=== PATIENT | female | born 1950 | race Caucasian/White ===

== ENCOUNTER 2016-06-15 18:18 | Inpatient (IN) | payer MEDICARE ==
[2016-06-15] MEDS ORDERED: METHYLPREDNISOLONE SOD SUCC/PF 40 MG/ML VIAL IV ONE (18:42)
--- NOTE | 2016-06-15 19:07 | ERNOTE ---
<Zeus Escobedo - Last Filed: 06/15/16 20:00> Dyspnea - Date Date of Service: 06/15/16 - General Presenting Symptoms: shortness of breath Time Seen by Provider: 06/15/16 18:33 Source: patient, family, EMS Exam Limitations: clinical condition - Immun/Allergies/Home Medications Immunizations: IMMUNIZATION HX Immunizations Up to Date No Allergies/Adverse Reactions: Allergies codeine Allergy (Verified 06/18/16 01:52) Home Medications: HOME MEDICATIONS Aclidinium [place] [Tudorza Pressair] 1 puff IH BID 06/16/16 [Last Taken Unknown ] Albuterol Sulfate 2.5 mg IH Q1H PRN 06/16/16 [Last Taken Unknown] Albuterol Sulfate [Ventolin HFA] 1 puff IH Q6H PRN 06/16/16 [Last Taken Unknown] Calcium Carbonate/Vitamin D3 [Calcium 600-Vit D3 400 Tablet] 1 each PO DAILY 05/21 [Last Taken Unknown] Escitalopram Oxalate [Lexapro] 10 mg PO DAILY 06/16/16 [Last Taken Unknown] Folic Acid 1 mg PO DAILY 06/16/16 [Last Taken Unknown] Gabapentin 100 mg PO BID 06/16/16 [Last Taken Unknown] Gabapentin 400 mg PO HS 06/16/16 [Last Taken Unknown] LORazepam [Ativan] 1 mg PO Q4H PRN 06/16/16 [Last Taken Unknown] Mometasone/Formoterol [Dulera 200 Mcg/5 Mcg Inhaler] 2 puff IH BID 06/16/16 [ Last Taken Unknown] Multivitamin [One Daily Essential] 1 each PO DAILY 06/16/16 [Last Taken Unknown] Omeprazole [Prilosec] 40 mg PO DAILY 06/16/16 [Last Taken Unknown] Polyvinyl Alcohol [Artificial Tears] 1 drop OP QID PRN 06/16/16 [Last Taken Unknown] Salsalate 500 mg PO QID PRN 06/16/16 [Last Taken Unknown] Sodium Chloride [Saline Nasal Mist] 4 spray NS Q4H PRN 06/16/16 [Last Taken Unknown] Topiramate [Topamax] 100 mg PO BID 06/16/16 [Last Taken Unknown] busPIRone HCL [Buspar] 10 mg PO BID 06/16/16 [Last Taken Unknown] Cefuroxime Axetil [Ceftin] 500 mg PO BID #30 tab 06/21/16 [Last Taken Unknown] Nicotine [Nicoderm] 21 mg TD Q24H #30 patch.td24 06/21/16 [Last Taken Unknown] predniSONE [Prednisone] 3 tab PO BID #60 tab 06/21/16 [Last Taken Unknown] - History of Present Illness Narrative: Pt is a known smoker with a long history, upwards to 50 years of smoking, but 3 days ago the patient started getting sick. She has had a progressively worse cough and is getting weaker over the past 3 days. Pt's O2 sats were in the upper 70's and the patient was near fatigue upon the arrival of EMS. Severity: severe Treatment [employer]: by patient, paramedics Initiating event: Reports: upper resp illness, exposure to smoke Frequency of episodes: Reports: occassional episodes Modifying Factors - (Improves): Reports: oxygen Associated Symptoms-Dyspnea: Reports: cough Review of Systems - Review of Systems Constitutional: Present: See HPI, fatigue EYE: Present: no symptoms reported ENT: Present: no symptoms reported Respiratory: Present: shortness of breath, cough, wheezing, other - tachypneic Cardiology: Present: palpitations, other - tachycardia Gastrointestinal/Abdominal: Present: no symptoms reported Genitourinary: Present: no symptoms reported Musculoskeletal: Present: no symptoms reported Skin: Present: no symptoms reported Neurological: Present: no symptoms reported Endocrine: Present: no symptoms reported Hematologic/Lymphatic: Present: no symptoms reported Psych: Present: no symptoms reported - Patient's Past Medical History Patient History - Medical: Anxiety, Depression, GERD Patient History - Cardiac/Respiratory: COPD, Other - respiratory failure - Social History Living Situations: home Smoking Status: Current every day smoker Have you smoked in the past 12 months: Yes Physical Exam - Physical Exam General Appearance: Present: wd/wn, alert, severe distress Eye Exam: Normal inspection: bilateral, PERRL: bilateral Ears, Nose, Throat: Present: hearing grossly normal, nasal congestion, normal pharynx Neck: Present: normal inspection, nontender Respiratory: Present: chest nontender, respiratory distress, accessory muscle use, crackles, wheezing Cardiovascular/Chest: Present: no murmur, normal peripheral pulses, tachycardia Gastrointestinal/Abdominal: Present: normal bowel sounds, nontender, nondistended, soft, no organomegaly Rectal Exam: Present: deferred Back Exam: Present: normal inspection, normal range of motion Extremity Exam: Present: normal inspection, non-tender, no edema, normal range of motion Neurological Exam: Present: alert, oriented, normal mood/affect Skin Exam: Present: normal color, diaphoresis Lymphatic Exam: Present: no adenopathy ED Progress - Results and Orders Patient's Lab Results:: I have reviewed the patient's lab results. - Vital Signs Patient's Vital Signs:: I have reviewed the patient's vital signs. Vital Signs: Vital Signs 06/15/16 06/15/16 18:21 18:33 Temperature 35.6 C L Pulse Rate 105 H 100 Respiratory 36 H Rate Blood Pressure 164/84 O2 Sat by Pulse 99 Oximetry - X-Ray X-Ray #1 X-Ray: chest Interpretation: Reviewed by me - Progress/Reassessment Chief Complaint: Dyspnea Progress:: Unchanged - Transfer of Care Physician Sign Out: Zeus Escobedo Receiving Physician: Chicho Ward Expected Disposition: Admit Additional Notes: Pt has improved on the Bi-Pap and the family does not want her to be intubated. She has been intubated in the past and it took 10 days to get her off the vent. Patient's family will talk and sign a DNI form. Departure Clinical Impression: COPD exacerbation - Departure Condition: Good - Critical Care Total Time (mins): 45 Critical Care: Considerable thought was given to intubating the patient but the family firmly requested no intubation because of previous difficulties. <Chicho Ward - Last Filed: 06/22/16 20:10> Dyspnea - Immun/Allergies/Home Medications Immunizations: IMMUNIZATION HX Immunizations Up to Date No - Family History Maternal Grandmother Family History - Cardiac/Respiratory: Hypertension ED Progress - Vital Signs Vital Signs: Vital Signs 06/15/16 06/15/16 06/15/16 18:21 18:24 18:33 Temperature 35.6 C L Pulse Rate 105 H 121 H 100 Respiratory 36 H 26 H Rate Blood Pressure 164/84 164/84 O2 Sat by Pulse 99 95 Oximetry 06/15/16 06/15/16 06/15/16 18:38 18:53 19:23 Temperature Pulse Rate 98 93 91 Respiratory 25 H 24 H 24 H Rate Blood Pressure 124/77 133/69 111/55 O2 Sat by Pulse 94 92 95 Oximetry 06/15/16 06/15/16 19:53 20:08 Temperature Pulse Rate 91 90 Respiratory 20 20 Rate Blood Pressure 108/60 96/57 O2 Sat by Pulse 93 95 Oximetry - Transfer of Care Additional Notes: DNI form was signed and pt remained stable in the ED on bipap. settings were modified to help reduce CO2 prior to admit to acute care. Pt admitted in stable condition
[2016-06-15 19:16] LABS: Albumin * 2.8 gm/dl (3.4-5.0); Anion Gap 15.6 mmol/L (6.8-13.8); BUN/Creatinine Ratio 16.2 (9.0-21.6); Bilirubin, Total 0.4 mg/dL (0.0-1.1); Ca. Corrected For Albumin 10.9 mg/dL (8.4-10.2); Calcium * 10.3 mg/dL (7.9-10.9); Carbon Dioxide 23.1 mmol/L (24-32.6); Magnesium 2.1 mg/dL (1.2-2.8); Potassium 3.7 mmol/L (3.4-4.6); Total Protein 7.4 gm/dL (6.2-8.2)
[2016-06-15 19:17] LABS: Hemoglobin 13.6 gm/dL (12.5-16.0); Mean Cell Volume 98.2 fl (78-100); Mean Corpuscular Hemoglobin 31.1 pg (27-31); Mean Corpuscular Hgb Conc 31.6 g/dl (32-36); Neutrophil # 13.4 K/mm3 (1.3-6.0); Neutrophil % 87.2 % (42-75.0); Platelet Count 213 K/mm3 (150-450); Red Blood Count 4.38 M/mm3 (4.2-5.4); Red Cell Distribution Width 13.8 % (11.5-14.0); White Blood Count 15.4 K/mm3 (4.0-10.5)
[2016-06-15] MEDS ORDERED: AZITHROMYCIN 250 MG TABLET PO ONE (20:48)
--- NOTE | 2016-06-15 21:56 | HP ---
<Rachel Hunt - Last Filed: 06/16/16 07:11> Chief Complaint - Chief Complaint Date of Service: 06/15/16 Time of Service: 20:45 Chief Complaint: "Difficulty breathing, not feeling well for 3 days.". Source of HPI- Pt; unreliable due to AMS, Pt's son-alyce Gilbert daughter Suzie, ER provider report, Pt's EHR. History of Present Illness: Ms Jean-Baptiste is a 66-year-old WF patient of Dr. Navdeep Khan with a PMH of: Acute Respiratory Distress, Anemia- Iron deficiency, CHF, COPD, and Osteoarthritis. History is obtained from pt's Son in-law Angélica & Step daughter Suzie as the pt is in a lethargic level of consciousness. Suzie states that for the last 3 days, pt has not been feeling well. She has been having worsening cough, SOB and lack of appetite. Today was worst condition that she has ever been. The SOB got so severe that they had to call the emergency squad. Suzie says that by the time the EMS arrived, she was gasping for air. The pt's POX level was found to be in the 70% by the EMS and, by the time she arrived to the [facility] ER, she was nearly unconscious. ER provider was going to Intubate patient due to signs of Acute Respiratory Distress, but the pt's daughter Clara,(who is also POA) declined. Clara told the ERP that pt had a prior hospitalization about 1 yr ago at a hospital in [place] for acute respiratory failure which led to intubation. The weaning off from the ventilator was a complicate one. For that reason, they were advised that if she ever needed to be intubated again, she may be ventilator dependent for the remainder of her life, which the pt expressed no desire for that treatment. According to the [facility] records, it appears that patient was discharged to hospice in May 2015 following that hospitalization. However, on June of 2015, pt revoked her hospice services as she changed her mind about comfort cares. She also changed her code status from DNR to full. She did that in the hopes that the doctors were wrong, and that she would not have any respiratory failure issues. She was then transferred to the [facility] where she resided until November 2015 and was discharged home thereafter. At the time of physical examaintion today, pt remains largely lerthagic. She is able to answer questions with one answer, but drifts back into sleep. During evaluation at the ER, the ABGs showed Respiratory acidosis with metabolic acidosis. Pt will need to be admitted inpatient due to Hypercapneic Hypoxic Respiratory failure, which we will attempt to correct with non invasive BIPAP as the pt's code status is DNR/DNI. - Patient's Past Medical History Patient History - Medical: Anemia - Iron Deficiency , Anxiety, Depression, GERD , Osteoarthritis, Other - Blindness Left Eye. Patient History - Cardiac/Respiratory: CHF, COPD, Other - respiratory failure Patient History - Surgical Procedures: Other - ORIF, Tonsilectomy, D & C - Family History Maternal Grandmother Family History - Cardiac/Respiratory: Hypertension - Social History Living Situations: home Smoking Status: Current every day smoker Have you smoked in the past 12 months: Yes Review Of Systems (GEN) - Review of Systems Additional Comments: ROS unobtainable due to pt's Altered level of Consciousness Immunizations: IMMUNIZATION HX Immunizations Up to Date No Allergies/Adverse Reactions: Allergies Allergy/AdvReac Type Severity Reaction Status Date / Time codeine Allergy Unverified 11/25/15 11:33 Home Medications: HOME MEDICATIONS Aclidinium [place] [Tudorza Pressair] 1 puff IH BID 06/16/16 [Last Taken Unknown ] Albuterol Sulfate 2.5 mg IH Q1H PRN 06/16/16 [Last Taken Unknown] Albuterol Sulfate [Ventolin HFA] 1 puff IH Q6H PRN 06/16/16 [Last Taken Unknown] Calcium Carbonate/Vitamin D3 [Calcium 600 + Vit D 400 Tablet] 1 each PO DAILY [Last Taken Unknown] Diphenhydramine HCl [Diphenhist] 25 mg PO QID 06/16/16 [Last Taken Unknown] Escitalopram Oxalate [Lexapro] 10 mg PO DAILY 06/16/16 [Last Taken Unknown] Folic Acid 1 mg PO DAILY 06/16/16 [Last Taken Unknown] Gabapentin 100 mg PO BID 06/16/16 [Last Taken Unknown] Gabapentin 400 mg PO HS 06/16/16 [Last Taken Unknown] Guaifenesin [Mucinex] 600 mg PO BID 06/16/16 [Last Taken Unknown] LORazepam [Ativan] 1 mg PO Q4H PRN 06/16/16 [Last Taken Unknown] Mometasone/Formoterol [Dulera 200 Mcg/5 Mcg Inhaler] 2 puff IH BID 06/16/16 [ Last Taken Unknown] Multivitamin [One Daily Essential] 1 each PO DAILY 06/16/16 [Last Taken Unknown] Omeprazole [Prilosec] 40 mg PO DAILY 06/16/16 [Last Taken Unknown] Polyvinyl Alcohol [Artificial Tears] 1 drop OP QID PRN 06/16/16 [Last Taken Unknown] Salsalate 500 mg PO QID PRN 06/16/16 [Last Taken Unknown] Sodium Chloride [Saline Nasal Mist] 4 spray NS Q4H PRN 06/16/16 [Last Taken Unknown] Topiramate [Topamax] 100 mg PO BID 06/16/16 [Last Taken Unknown] busPIRone HCL [Buspar] 10 mg PO BID 06/16/16 [Last Taken Unknown] Exam - Exam Vital Signs: Vital Signs - Last Taken Temp 35.6 C L 06/15/16 18:21 Pulse 90 06/15/16 20:08 Resp 20 06/15/16 20:08 BP 96/57 06/15/16 20:08 Pulse Ox 95 06/15/16 20:08 Constitutional: Present: Mild distress, Lethargic ENT Exam: Present: normal ENT inspection, hearing grossly normal, dry mucous membranes. Absent: nasal congestion, nasal drainage Eye Exam: bilateral eye: normal inspection, PERRL Neck: Present: non-tender, full range of motion, supple, trachea midline Back Exam: Present: normal inspection Breasts: Present: Exam deferred Respiratory: Present: chest non-tender, crackles, wheezing, expiration ( prolonged) Cardiovascular/Chest: Present: regular rate, rhythm, no murmur Abdomen: Present: Normal bowel sounds, soft, nontender /Rectal: Present: Exam deferred Extremity: Present: normal range of motion, non-tender, normal inspection Skin Exam: Present: warm/dry, no cyanosis Lymphatic: Present: no adenopathy Neurologic: Present: no motor/sensory deficits - Lethargic., other Appearance: Present: appropriate appearance Eye contact: Present: cooperative Thoughts: Present: no apparent hallucination Diagnostic Studies: Abnormal Lab Results 06/15/16 06/15/16 06/15/16 Range/Units 18:57 18:58 18:58 WBC 15.4 H (4.0-10.5) K/mm3 MCH 31.1 H (27-31) pg MCHC 31.6 L (32-36) g/dl Immature Gran % (Auto) 0.70 H (0.001-0.429) % Immature Gran # (Auto) 0.11 H (0.000-0.0310) K/mm3 Neutrophils % 87.2 H (42-75.0) % Lymphocytes % 6.4 L (20-51) % Neutrophils # 13.4 H (1.3-6.0) K/mm3 Lymphocytes # 1.0 L (1.5-3.5) k/mm3 pCO2 67.2 H (32.0-45.0) mmHg pO2 (83.0-108.0) mmHg HCO3 18.6 L (21.0-28.0) mmol/L Total CO2 (19.0-24.0) mmol/L Base Excess -12.5 L (-2.0-3.0) mmol/L ABG pH 7.06 L* (7.35-7.45) ABG O2 Sat (Measured) 93.6 L (94.0-98.0) % Carbon Dioxide 23.1 L (24-32.6) mmol/L Anion Gap 15.6 H (6.8-13.8) mmol/L Random Glucose 123 H (70-110) mg/dL Calcium Adj for Albumin 10.9 H (8.4-10.2) mg/dL ALT 15 L (19-67) U/L Albumin 2.8 L (3.4-5.0) gm/dl Mycoplasma pneumon IgM (NonReactive) 06/15/16 06/15/16 06/15/16 Range/Units 18:58 20:22 21:30 WBC (4.0-10.5) K/mm3 MCH (27-31) pg MCHC (32-36) g/dl Immature Gran % (Auto) (0.001-0.429) % Immature Gran # (Auto) (0.000-0.0310) K/mm3 Neutrophils % (42-75.0) % Lymphocytes % (20-51) % Neutrophils # (1.3-6.0) K/mm3 Lymphocytes # (1.5-3.5) k/mm3 pCO2 71.3 H* 71.7 H* (32.0-45.0) mmHg pO2 67.1 L 82.4 L (83.0-108.0) mmHg HCO3 (21.0-28.0) mmol/L Total CO2 24.3 H (19.0-24.0) mmol/L Base Excess -8.5 L -9.0 L (-2.0-3.0) mmol/L ABG pH 7.11 L* 7.10 L* (7.35-7.45) ABG O2 Sat (Measured) 85.4 L 91.4 L (94.0-98.0) % Carbon Dioxide (24-32.6) mmol/L Anion Gap (6.8-13.8) mmol/L Random Glucose (70-110) mg/dL Calcium Adj for Albumin (8.4-10.2) mg/dL ALT (19-67) U/L Albumin (3.4-5.0) gm/dl Mycoplasma pneumon IgM Reactive H (NonReactive) Laboratory Results WBC 15.4 K/mm3 (4.0-10.5) H 06/15/16 18:58 RBC 4.38 M/mm3 (4.2-5.4) 06/15/16 18:58 Hgb 13.6 gm/dL (12.5-16.0) 06/15/16 18:58 Hct 43.0 % (37.0-47.0) 06/15/16 18:58 MCV 98.2 fl (78-100) 06/15/16 18:58 MCH 31.1 pg (27-31) H 06/15/16 18:58 MCHC 31.6 g/dl (32-36) L 06/15/16 18:58 RDW 13.8 % (11.5-14.0) 06/15/16 18:58 Plt Count 213 K/mm3 (150-450) 06/15/16 18:58 MPV 9.0 fl (6.0-9.5) 06/15/16 18:58 Immature Gran % (Auto) 0.70 % (0.001-0.429) H 06/15/16 18:58 Immature Gran # (Auto) 0.11 K/mm3 (0.000-0.0310) H 06/15/16 18:58 Neutrophils % 87.2 % (42-75.0) H 06/15/16 18:58 Lymphocytes % 6.4 % (20-51) L 06/15/16 18:58 Monocytes % 5.3 % (0.0-9) 06/15/16 18:58 Eosinophils % 0.0 % (0.0-3.0) 06/15/16 18:58 Basophils % 0.4 % (0.0-1.0) 06/15/16 18:58 Nucleated RBC % 0.0 k/mm3 (0-1) 06/15/16 18:58 Neutrophils # 13.4 K/mm3 (1.3-6.0) H 06/15/16 18:58 Lymphocytes # 1.0 k/mm3 (1.5-3.5) L 06/15/16 18:58 Monocytes # 0.8 k/mm3 (0.0-1.0) 06/15/16 18:58 Eosinophils # 0.0 k/mm3 (0.0-0.7) 06/15/16 18:58 Absolute Basophils 0.1 k/mm3 (0.0-0.1) 06/15/16 18:58 pCO2 71.7 mmHg (32.0-45.0) H* 06/15/16 21:30 pO2 82.4 mmHg (83.0-108.0) L 06/15/16 21:30 HCO3 21.8 mmol/L (21.0-28.0) 06/15/16 21:30 Total CO2 24.0 mmol/L (19.0-24.0) 06/15/16 21:30 Base Excess -9.0 mmol/L (-2.0-3.0) L 06/15/16 21:30 ABG pH 7.10 (7.35-7.45) L* 06/15/16 21:30 ABG O2 Sat (Measured) 91.4 % (94.0-98.0) L 06/15/16 21:30 Sodium 140 mmol/L (132-142) 06/15/16 18:58 Plasma Sodium 140 mmol/L (130-142) 06/15/16 18:58 Potassium 3.7 mmol/L (3.4-4.6) 06/15/16 18:58 Chloride 105 mmol/L (97-106) 06/15/16 18:58 Carbon Dioxide 23.1 mmol/L (24-32.6) L 06/15/16 18:58 Anion Gap 15.6 mmol/L (6.8-13.8) H 06/15/16 18:58 BUN 16 mg/dL (3-23) 06/15/16 18:58 Creatinine 0.99 mg/dL (0.4-1.4) 06/15/16 18:58 Est GFR (Non-Af Amer) 60 mL/min (60-130) D 06/15/16 18:58 BUN/Creatinine Ratio 16.2 (9.0-21.6) 06/15/16 18:58 Random Glucose 123 mg/dL (70-110) H 06/15/16 18:58 Calcium 10.3 mg/dL (7.9-10.9) 06/15/16 18:58 Calcium Adj for Albumin 10.9 mg/dL (8.4-10.2) H 06/15/16 18:58 Magnesium 2.1 mg/dL (1.2-2.8) 06/15/16 18:58 Total Bilirubin 0.4 mg/dL (0.0-1.1) 06/15/16 18:58 AST 7 U/L (0-48) 06/15/16 18:58 ALT 15 U/L (19-67) L 06/15/16 18:58 Alkaline Phosphatase 143 U/L (50-170) 06/15/16 18:58 Total Protein 7.4 gm/dL (6.2-8.2) 06/15/16 18:58 Albumin 2.8 gm/dl (3.4-5.0) L 06/15/16 18:58 Influenza Type A Ag Negative (NEGATIVE) 06/15/16 18:54 Influenza Type B Ag Negative (NEGATIVE) 06/15/16 18:54 Mycoplasma pneumon IgM Reactive (NonReactive) H 06/15/16 18:58 Assessment/Plan - Assessment/Plan (1) Acute hypercapnic respiratory failure Assessment: Ms Jean-Baptiste is a 66-yr-old WF with a known history of COPD, who has had prior hospitalization for Acute respiratory failure which required intubation. She came up with URI symptoms of coughing and SOB 3 days ago and got worse today. She was brought to the [facility] ER by the EMS who found her with POX level of 70% and by the time she arrived to the ED she was nearly unresponsive. ERP was going to intubate pt, but it appears that pt has declined these efforts in the past and so did her daughter Clara, who was present at the time, and confirmed this wish. At the time of physical examination, her POX level are 92- 94% on BIPAP with 35% OF fio2. I had a lengthy discussion with pt's son in-law and step daughter about the critical levels of the ABGs and the fact that trying to correct her respiratory/metabolic derangements may be difficult with noninvasive ventilation/BIPAP and that could potentially lead to . I also discussed that results could improve with intubation, but might also not guarantee being off the invasive ventilator. I explained that we could give an attempt with non-invasive BIPAP but if she failed to improve, transition to comfort cares may be initiated. I did inform them that we could try antibiotics and IV steroids as an attempt to see if any underlying respiratory illness such as pneumonia and acute exacerbation of COPD resolves while on the noninvasive mechanical ventilation. They all verbalized the understanding of plan of treatment and were thankful for the medical care the pt was receiving. I will let the attending decide how much time she can be left on the BIPAP as at this time, the equipment is being used to prevent intubation and to see if there will be any improvement without invasive ventilation. Problem: Acute (2) Acute exacerbation of chronic obstructive pulmonary disease (COPD) Problem: Acute (3) Pneumonia Problem: Acute (4) CHF (congestive heart failure) Problem: Chronic (5) Anemia Problem: Chronic QualifierTitle: Anemia type: iron deficiency <Navdeep Khan - Last Filed: 06/16/16 14:42> Exam - Exam Vital Signs: Vital Signs - Last Taken Temp 36.6 C 06/16/16 13:24 Pulse 98 06/16/16 13:24 Resp 26 H 06/16/16 13:24 BP 120/72 06/16/16 13:24 Pulse Ox 99 06/16/16 13:24 Diagnostic Studies: Abnormal Lab Results 06/16/16 06/16/16 06/16/16 Range/Units 00:55 03:35 05:25 WBC 11.9 H D (4.0-10.5) K/mm3 MCHC 31.1 L (32-36) g/dl RDW 14.1 H (11.5-14.0) % Immature Gran % (Auto) 0.70 H (0.001-0.429) % Immature Gran # (Auto) 0.08 H (0.000-0.0310) K/mm3 Neutrophils % 91.0 H (42-75.0) % Lymphocytes % 6.1 L (20-51) % Neutrophils # 10.8 H (1.3-6.0) K/mm3 Lymphocytes # 0.7 L (1.5-3.5) k/mm3 pCO2 66.0 H 65.2 H (32.0-45.0) mmHg pO2 64.1 L 60.0 L (83.0-108.0) mmHg Total CO2 24.2 H (19.0-24.0) mmol/L Base Excess -8.8 L -7.7 L (-2.0-3.0) mmol/L ABG pH 7.13 L* 7.15 L* (7.35-7.45) ABG O2 Sat (Measured) 84.4 L 82.6 L (94.0-98.0) % Carbon Dioxide (24-32.6) mmol/L Anion Gap (6.8-13.8) mmol/L Est GFR (Non-Af Amer) (60-130) mL/min Random Glucose (70-110) mg/dL 06/16/16 Range/Units 05:25 WBC (4.0-10.5) K/mm3 MCHC (32-36) g/dl RDW (11.5-14.0) % Immature Gran % (Auto) (0.001-0.429) % Immature Gran # (Auto) (0.000-0.0310) K/mm3 Neutrophils % (42-75.0) % Lymphocytes % (20-51) % Neutrophils # (1.3-6.0) K/mm3 Lymphocytes # (1.5-3.5) k/mm3 pCO2 (32.0-45.0) mmHg pO2 (83.0-108.0) mmHg Total CO2 (19.0-24.0) mmol/L Base Excess (-2.0-3.0) mmol/L ABG pH (7.35-7.45) ABG O2 Sat (Measured) (94.0-98.0) % Carbon Dioxide 23.9 L (24-32.6) mmol/L Anion Gap 14.0 H (6.8-13.8) mmol/L Est GFR (Non-Af Amer) 54 L (60-130) mL/min Random Glucose 138 H (70-110) mg/dL Laboratory Results WBC 11.9 K/mm3 (4.0-10.5) H D 06/16/16 05:25 RBC 4.27 M/mm3 (4.2-5.4) 06/16/16 05:25 Hgb 13.2 gm/dL (12.5-16.0) 06/16/16 05:25 Hct 42.4 % (37.0-47.0) 06/16/16 05:25 MCV 99.3 fl (78-100) 06/16/16 05:25 MCH 30.9 pg (27-31) 06/16/16 05:25 MCHC 31.1 g/dl (32-36) L 06/16/16 05:25 RDW 14.1 % (11.5-14.0) H 06/16/16 05:25 Plt Count 202 K/mm3 (150-450) 06/16/16 05:25 MPV 9.1 fl (6.0-9.5) 06/16/16 05:25 Immature Gran % (Auto) 0.70 % (0.001-0.429) H 06/16/16 05:25 Immature Gran # (Auto) 0.08 K/mm3 (0.000-0.0310) H 06/16/16 05:25 Neutrophils % 91.0 % (42-75.0) H 06/16/16 05:25 Lymphocytes % 6.1 % (20-51) L 06/16/16 05:25 Monocytes % 1.9 % (0.0-9) 06/16/16 05:25 Eosinophils % 0.0 % (0.0-3.0) 06/16/16 05:25 Basophils % 0.3 % (0.0-1.0) 06/16/16 05:25 Nucleated RBC % 0.0 k/mm3 (0-1) 06/16/16 05:25 Neutrophils # 10.8 K/mm3 (1.3-6.0) H 06/16/16 05:25 Lymphocytes # 0.7 k/mm3 (1.5-3.5) L 06/16/16 05:25 Monocytes # 0.2 k/mm3 (0.0-1.0) 06/16/16 05:25 Eosinophils # 0.0 k/mm3 (0.0-0.7) 06/16/16 05:25 Absolute Basophils 0.0 k/mm3 (0.0-0.1) 06/16/16 05:25 pCO2 65.2 mmHg (32.0-45.0) H 06/16/16 03:35 pO2 60.0 mmHg (83.0-108.0) L 06/16/16 03:35 HCO3 22.2 mmol/L (21.0-28.0) 06/16/16 03:35 Total CO2 24.2 mmol/L (19.0-24.0) H 06/16/16 03:35 Base Excess -7.7 mmol/L (-2.0-3.0) L 06/16/16 03:35 ABG pH 7.15 (7.35-7.45) L* 06/16/16 03:35 ABG O2 Sat (Measured) 82.6 % (94.0-98.0) L 06/16/16 03:35 Sodium 139 mmol/L (132-142) 06/16/16 05:25 Plasma Sodium 140 mmol/L (130-142) 06/16/16 05:25 Potassium 3.9 mmol/L (3.4-4.6) 06/16/16 05:25 Chloride 105 mmol/L (97-106) 06/16/16 05:25 Carbon Dioxide 23.9 mmol/L (24-32.6) L 06/16/16 05:25 Anion Gap 14.0 mmol/L (6.8-13.8) H 06/16/16 05:25 BUN 18 mg/dL (3-23) 06/16/16 05:25 Creatinine 1.08 mg/dL (0.4-1.4) 06/16/16 05:25 Est GFR (Non-Af Amer) 54 mL/min (60-130) L 06/16/16 05:25 BUN/Creatinine Ratio 16.7 (9.0-21.6) 06/16/16 05:25 Random Glucose 138 mg/dL (70-110) H 06/16/16 05:25 Calcium 10.3 mg/dL (7.9-10.9) 06/16/16 05:25 Calcium Adj for Albumin 10.9 mg/dL (8.4-10.2) H 06/15/16 18:58 Magnesium 2.1 mg/dL (1.2-2.8) 06/15/16 18:58 Total Bilirubin 0.4 mg/dL (0.0-1.1) 06/15/16 18:58 AST 7 U/L (0-48) 06/15/16 18:58 ALT 15 U/L (19-67) L 06/15/16 18:58 Alkaline Phosphatase 143 U/L (50-170) 06/15/16 18:58 Total Protein 7.4 gm/dL (6.2-8.2) 06/15/16 18:58 Albumin 2.8 gm/dl (3.4-5.0) L 06/15/16 18:58 Influenza Type A Ag Negative (NEGATIVE) 06/15/16 18:54 Influenza Type B Ag Negative (NEGATIVE) 06/15/16 18:54 Mycoplasma pneumon IgM Reactive (NonReactive) H 06/15/16 18:58 Assessment/Plan - Procedures Results: I reviewed the record and examined the patient. [facility] personally directed [facility] for the [facility]. Her family reports she is back to drinking alcohol, though not as much as she had been in the more distant past. She is also smoking cigarettes again, perhaps 1 pack per day. Her prognosis is guarded , and I estimate a hospital stay of one week.
[2016-06-15] MEDS ORDERED: ALBUTEROL SULFATE 2.5 MG/0.5 ML VIAL.NEB IH PRN (23:04)
[2016-06-15] MEDS: METHYLPREDNISOLONE SOD SUCC 80 MG in WATER FOR INJ.,BACTERIOSTATIC 0 ML IV SCH (23:56)
[2016-06-16] MEDS: ALBUTEROL SULFATE/IPRATROPIUM 3 ML NEBU IH SCH ×7 (00:09→22:06)
[2016-06-16] MEDS: AZITHROMYCIN 500 MG in DEXTROSE 5 % IN WATER 250 ML IV SCH ×4 (00:48→23:55)
[2016-06-16] MEDS: METHYLPREDNISOLONE SOD SUCC 80 MG in WATER FOR INJ.,BACTERIOSTATIC 0 ML IV SCH ×4 (04:55→23:55)
[2016-06-16 05:59] LABS: Hematocrit 42.4 % (37.0-47.0); Hemoglobin 13.2 gm/dL (12.5-16.0); Mean Cell Volume 99.3 fl (78-100); Mean Corpuscular Hemoglobin 30.9 pg (27-31); Mean Corpuscular Hgb Conc 31.1 g/dl (32-36); Mean Platelet Volume 9.1 fl (6.0-9.5); Neutrophil # 10.8 K/mm3 (1.3-6.0); Platelet Count 202 K/mm3 (150-450); Red Blood Count 4.27 M/mm3 (4.2-5.4); Red Cell Distribution Width 14.1 % (11.5-14.0); White Blood Count 11.9 K/mm3 (4.0-10.5)
[2016-06-16 06:14] LABS: BUN/Creatinine Ratio 16.7 (9.0-21.6); Calcium * 10.3 mg/dL (7.9-10.9); Carbon Dioxide 23.9 mmol/L (24-32.6); Estimated Creat Clear 47.4; Potassium 3.9 mmol/L (3.4-4.6)
[2016-06-16] MEDS ORDERED: LORazepam 1 MG TABLET PO PRN (07:19)
[2016-06-16] MEDS ORDERED: POLYVINYL ALCOHOL 150 DROP BTL OP PRN (07:19)
[2016-06-16] MEDS ORDERED: SODIUM CHLORIDE 45 SPRAY BTL NS PRN (07:29)
[2016-06-16] MEDS ORDERED: ALBUTEROL SULFATE 2.5 MG/0.5 ML VIAL.NEB IH PRN ×2 (07:30→07:45)
[2016-06-16] MEDS ORDERED: FLUTICASONE/SALMETEROL 14 PUFF DISK.W.DEV IH SCH (09:00)
[2016-06-16] MEDS ORDERED: AZITHROMYCIN 500 MG in DEXTROSE 5 % IN WATER 250 ML IV SCH ×2 (09:00)
[2016-06-16] MEDS: ESCITALOPRAM OXALATE 10 MG TAB PO SCH (09:23)
[2016-06-16] MEDS: FOLIC ACID 1 MG TABLET PO SCH (09:23)
[2016-06-16] MEDS: CALCIUM CARBONATE/VITAMIN D3 1 TAB TABLET PO SCH (09:23)
[2016-06-16] MEDS: TOPIRAMATE 50 MG TABLET PO SCH ×2 (09:24→21:01)
[2016-06-16] MEDS: MULTIVITAMINS 1 CAP CAPSULE PO SCH (09:24)
[2016-06-16] MEDS: GABAPENTIN 100 MG CAPSULE PO SCH ×2 (09:24→16:29)
[2016-06-16] MEDS: PANTOPRAZOLE SODIUM 40 MG TABLET.EC PO SCH (09:24)
[2016-06-16] MEDS: ENOXAPARIN SODIUM 40 MG/0.4 ML SYRG SC SCH (11:16)
[2016-06-16] MEDS ORDERED: ONDANSETRON HCL/PF 2 MG/ML VIAL IV PRN (13:59)
--- NOTE | 2016-06-16 14:52 | PN ---
Subjective - Date and Time Seen Date: 06/16/16 Time: 14:43 Objective Objective Narrative: "What day is it?" "When can I drink water?" Family reports she is now drinking alcohol again, though not as much as she used to. He also reports that she is back to smoking cigarettes, which she had completely stopped, smoking about 1 pack per day. For the last several months she has had more difficulty with her breathing. Is able to open arise today and respond to questions. It's hard to understand her. She can write down questions of her own. This is much better than her presentation yesterday when she was very obtunded. Although her blood gases aren't particularly spectacular, they are improving, moving in the correct direction. - Review of Systems Generalized/Overall Review: Reports: Malaise EENTM: Reports: No Symptoms Reported Respiratory: Reports: Cough, Shortness of Breath Cardiac: Reports: No Symptoms Reported Abdominal: Reports: No Symptoms Reported Genitourinary Symptoms: Reports: No Symptoms Reported Musculoskeletal Complaints: Reports: No Symptoms Reported Neurological: Reports: No Symptoms Reported Skin: Reports: No Symptoms Reported Endocrine: Reports: No Symptoms Reported Misc: All systems neg except as marked - Vitals Vitals: Last Vital Signs Selected Entries 06/16/16 06/16/16 13:24 14:40 Temperature 36.6 C Temperature Oral Source Pulse Rate 98 87 Respiratory 26 H 19 Rate Blood Pressure 120/72 Blood Pressure Supine Position O2 Sat by Pulse 99 100 Oximetry Oxygen Delivery Bi-pap Bi-pap Method - Abnormal Lab Findings Abnormal Lab Findings: Abnormal Lab Results 06/16/16 06/16/16 06/16/16 Range/Units 00:55 03:35 05:25 WBC 11.9 H D (4.0-10.5) K/mm3 MCHC 31.1 L (32-36) g/dl RDW 14.1 H (11.5-14.0) % Immature Gran % (Auto) 0.70 H (0.001-0.429) % Immature Gran # (Auto) 0.08 H (0.000-0.0310) K/mm3 Neutrophils % 91.0 H (42-75.0) % Lymphocytes % 6.1 L (20-51) % Neutrophils # 10.8 H (1.3-6.0) K/mm3 Lymphocytes # 0.7 L (1.5-3.5) k/mm3 pCO2 66.0 H 65.2 H (32.0-45.0) mmHg pO2 64.1 L 60.0 L (83.0-108.0) mmHg Total CO2 24.2 H (19.0-24.0) mmol/L Base Excess -8.8 L -7.7 L (-2.0-3.0) mmol/L ABG pH 7.13 L* 7.15 L* (7.35-7.45) ABG O2 Sat (Measured) 84.4 L 82.6 L (94.0-98.0) % Carbon Dioxide (24-32.6) mmol/L Anion Gap (6.8-13.8) mmol/L Est GFR (Non-Af Amer) (60-130) mL/min Random Glucose (70-110) mg/dL 06/16/16 Range/Units 05:25 WBC (4.0-10.5) K/mm3 MCHC (32-36) g/dl RDW (11.5-14.0) % Immature Gran % (Auto) (0.001-0.429) % Immature Gran # (Auto) (0.000-0.0310) K/mm3 Neutrophils % (42-75.0) % Lymphocytes % (20-51) % Neutrophils # (1.3-6.0) K/mm3 Lymphocytes # (1.5-3.5) k/mm3 pCO2 (32.0-45.0) mmHg pO2 (83.0-108.0) mmHg Total CO2 (19.0-24.0) mmol/L Base Excess (-2.0-3.0) mmol/L ABG pH (7.35-7.45) ABG O2 Sat (Measured) (94.0-98.0) % Carbon Dioxide 23.9 L (24-32.6) mmol/L Anion Gap 14.0 H (6.8-13.8) mmol/L Est GFR (Non-Af Amer) 54 L (60-130) mL/min Random Glucose 138 H (70-110) mg/dL - Exam Constitutional: Present: Alert, Cooperative, Well developed, Thin and frail ENT Exam: Present: normal ENT inspection, hearing grossly normal Neck: Present: normal inspection Respiratory: Present: decreased breath sounds, expiration (prolonged) Cardiovascular/Chest: Present: regular rate, rhythm, no murmur Abdomen: Present: Normal bowel sounds, soft, nontender, nondistended, no rebound tenderness, no hepatospenomegaly, no masses Extremity: Present: normal range of motion, normal inspection, no pedal edema Skin Exam: Present: no cyanosis, cool/dry Neurologic: Present: alert Appearance: Present: appropriate appearance, neat Eye contact: Present: cooperative Cauti Physician Documentation - Urinary Catheter Management Urethral (Del Cid) Date of Insertion: 06/16/16 Time of Insertion: 00:13 Assessment/Plan Plan Narrative: IV antibiotics. IV then oral thiamine. Follow labs. Wean BiPAP. Adjust O2. Teach smoking cessation. Estimate hospital stay of one week. - Problems/Diagnosis (1) Acute on chronic respiratory failure Problem: Acute Qualifiers: Respiratory failure complication: hypoxia and hypercapnia Qualified Code(s) : J96.21 - Acute and chronic respiratory failure with hypoxia; J96.22 - Acute and chronic respiratory failure with hypercapnia (2) Tobacco abuse Problem: Acute (3) Alcohol abuse Problem: Acute (4) Acute exacerbation of chronic obstructive pulmonary disease (COPD) Problem: Acute (5) CHF (congestive heart failure) Problem: Chronic Qualifiers: Congestive heart failure type: unspecified congestive heart failure type Congestive heart failure chronicity: chronic Qualified Code(s): I50.9 - Heart failure, unspecified (6) Mycoplasma pneumoniae pneumonia Problem: Acute Qualifiers: Laterality: right Lung location: lower lobe of lung Qualified Code(s): J15.7 - Pneumonia due to Mycoplasma pneumoniae
[2016-06-16] MEDS ORDERED: THIAMINE HCL 100 MG in NORMAL SALINE 50 ML IV ONE (15:00)
[2016-06-16] MEDS: GABAPENTIN 400 MG CAPSULE PO SCH (21:00)
[2016-06-16] MEDS: FLUTICASONE/SALMETEROL 14 PUFF DISK.W.DEV IH SCH (21:04)
[2016-06-17] MEDS: ALBUTEROL SULFATE/IPRATROPIUM 3 ML NEBU IH SCH ×6 (02:05→22:35)
[2016-06-17] MEDS: METHYLPREDNISOLONE SOD SUCC 80 MG in WATER FOR INJ.,BACTERIOSTATIC 0 ML IV SCH ×4 (05:21→23:48)
[2016-06-17 06:06] LABS: Hematocrit 41.1 % (37.0-47.0); Hemoglobin 12.9 gm/dL (12.5-16.0); Mean Cell Volume 98.6 fl (78-100); Mean Corpuscular Hemoglobin 30.9 pg (27-31); Mean Corpuscular Hgb Conc 31.4 g/dl (32-36); Mean Platelet Volume 9.2 fl (6.0-9.5); Neutrophil # 6.6 K/mm3 (1.3-6.0); Neutrophil % 84.3 % (42-75.0); Platelet Count 212 K/mm3 (150-450); Red Blood Count 4.17 M/mm3 (4.2-5.4); Red Cell Distribution Width 13.8 % (11.5-14.0); White Blood Count 7.9 K/mm3 (4.0-10.5)
[2016-06-17 06:15] LABS: Anion Gap 13.2 mmol/L (6.8-13.8); BUN/Creatinine Ratio 20.8 (9.0-21.6); Calcium * 10.5 mg/dL (7.9-10.9); Carbon Dioxide 26.2 mmol/L (24-32.6); Estimated Creat Clear 42.6; Potassium 3.4 mmol/L (3.4-4.6)
[2016-06-17] MEDS: PANTOPRAZOLE SODIUM 40 MG TABLET.EC PO SCH (06:30)
[2016-06-17] MEDS: CALCIUM CARBONATE/VITAMIN D3 1 TAB TABLET PO SCH (08:58)
[2016-06-17] MEDS: MULTIVITAMINS 1 CAP CAPSULE PO SCH (08:58)
[2016-06-17] MEDS: FOLIC ACID 1 MG TABLET PO SCH (08:58)
[2016-06-17] MEDS: FLUTICASONE/SALMETEROL 14 PUFF DISK.W.DEV IH SCH ×2 (08:58→21:16)
[2016-06-17] MEDS: ESCITALOPRAM OXALATE 10 MG TAB PO SCH (08:58)
[2016-06-17] MEDS: TOPIRAMATE 50 MG TABLET PO SCH ×2 (08:59→21:16)
[2016-06-17] MEDS: GABAPENTIN 100 MG CAPSULE PO SCH ×2 (08:59→15:25)
[2016-06-17] MEDS: THIAMINE HCL 100 MG TABLET PO SCH (08:59)
[2016-06-17] MEDS: ENOXAPARIN SODIUM 40 MG/0.4 ML SYRG SC SCH (11:02)
--- NOTE | 2016-06-17 17:56 | PN ---
Subjective - Date and Time Seen Date: 06/17/16 Time: 15:20 Objective Objective Narrative: Improved. Doesn't stay awake much. No complaint of pain. More alert. - Review of Systems Generalized/Overall Review: Reports: Malaise EENTM: Reports: No Symptoms Reported Respiratory: Reports: Cough, Shortness of Breath Cardiac: Reports: No Symptoms Reported Abdominal: Reports: No Symptoms Reported Genitourinary Symptoms: Reports: No Symptoms Reported Musculoskeletal Complaints: Reports: No Symptoms Reported Neurological: Reports: No Symptoms Reported Skin: Reports: No Symptoms Reported Endocrine: Reports: No Symptoms Reported Misc: All systems neg except as marked - poor historian - Vitals Vitals: Last Vital Signs Selected Entries 06/17/16 14:31 Temperature 36.6 C Temperature Oral Source Pulse Rate 84 Respiratory 20 Rate Blood Pressure 104/59 Blood Pressure Sitting Position O2 Sat by Pulse 97 Oximetry Oxygen Delivery Bi-pap Method - Abnormal Lab Findings Abnormal Lab Findings: Abnormal Lab Results 06/17/16 06/17/16 06/17/16 Range/Units 05:38 05:38 06:00 RBC 4.17 L (4.2-5.4) M/mm3 MCHC 31.4 L (32-36) g/dl Immature Gran % (Auto) 1.10 H (0.001-0.429) % Immature Gran # (Auto) 0.09 H (0.000-0.0310) K/mm3 Neutrophils % 84.3 H (42-75.0) % Lymphocytes % 10.7 L (20-51) % Neutrophils # 6.6 H (1.3-6.0) K/mm3 Lymphocytes # 0.8 L (1.5-3.5) k/mm3 pCO2 55.1 H (32.0-45.0) mmHg Total CO2 24.8 H (19.0-24.0) mmol/L Base Excess -4.8 L (-2.0-3.0) mmol/L ABG pH 7.24 L (7.35-7.45) BUN 25 H (3-23) mg/dL Est GFR (Non-Af Amer) 48 L (60-130) mL/min Random Glucose 188 H D (70-110) mg/dL - Exam Constitutional: Present: Alert, Cooperative, Well developed ENT Exam: Present: normal ENT inspection, hearing grossly normal Neck: Present: normal inspection Respiratory: Present: decreased breath sounds, wheezing, expiration (prolonged) Cardiovascular/Chest: Present: regular rate, rhythm, no murmur Abdomen: Present: Normal bowel sounds, soft, nontender, nondistended, no rebound tenderness, no hepatospenomegaly, no masses Extremity: Present: pedal edema Skin Exam: Present: normal color, warm/dry, no cyanosis Neurologic: Present: alert Appearance: Present: appropriate appearance, neat Eye contact: Present: cooperative Cauti Physician Documentation - Urinary Catheter Management Urethral (Del Cid) Date of Insertion: 06/16/16 Time of Insertion: 00:13 Date of Removal: 06/17/16 Time of Removal: 09:36 Assessment/Plan Plan Narrative: IV antibiotics. IV steroids. Breathing treatments. Follow labs. wean O2 and Bipap. - Problems/Diagnosis (1) Acute on chronic respiratory failure Problem: Acute Qualifiers: Respiratory failure complication: hypoxia and hypercapnia Qualified Code(s) : J96.21 - Acute and chronic respiratory failure with hypoxia; J96.22 - Acute and chronic respiratory failure with hypercapnia (2) Tobacco abuse Problem: Acute (3) Alcohol abuse Problem: Acute (4) Acute exacerbation of chronic obstructive pulmonary disease (COPD) Problem: Acute (5) CHF (congestive heart failure) Problem: Chronic Qualifiers: Congestive heart failure type: unspecified congestive heart failure type Congestive heart failure chronicity: chronic Qualified Code(s): I50.9 - Heart failure, unspecified (6) Mycoplasma pneumoniae pneumonia Problem: Acute Qualifiers: Laterality: right Lung location: lower lobe of lung Qualified Code(s): J15.7 - Pneumonia due to Mycoplasma pneumoniae
[2016-06-17] MEDS: GABAPENTIN 400 MG CAPSULE PO SCH (21:16)
--- NOTE | 2016-06-17 23:12 | OR ---
Anesthesia Procedure Note - Anesthesia Procedure Note Narrative: Vital Signs - Last Taken Temp 36.6 C 06/17/16 19:02 Pulse 77 06/17/16 22:35 Resp 20 06/17/16 22:35 BP 118/74 06/17/16 19:02 Pulse Ox 94 06/17/16 22:35 O2 Oxygen Delivery Method Room Air 06/17/16 23:11 ANESTHESIA PROCEDURE NOTE Date of procedure: 06/17/2016. Time of procedure: 2254. Performed by: Shiva Chaudhry CRNA Law Office Assistant: None . Preprocedure diagnosis: Respiratory failure. COPD. Difficult IV access. Post procedure diagnosis: Same. Procedure: IV start Indications: Difficult IV access. Findings: 22-gauge Angiocath IV started and right arm EBL: Minimal. Fluids: N/A. Specimen: N/A. Post procedure condition: The patient tolerated the procedure well. No complications were noted. Thank you for this consultation Shiva Chaudhry CRNA
[2016-06-17] MEDS: AZITHROMYCIN 500 MG in DEXTROSE 5 % IN WATER 250 ML IV SCH ×2 (23:48)
[2016-06-18] MEDS: ALBUTEROL SULFATE/IPRATROPIUM 3 ML NEBU IH SCH ×6 (03:05→23:35)
[2016-06-18] MEDS: METHYLPREDNISOLONE SOD SUCC 80 MG in WATER FOR INJ.,BACTERIOSTATIC 0 ML IV SCH ×3 (04:31→16:39)
[2016-06-18 06:00] LABS: Hematocrit 39.7 % (37.0-47.0); Hemoglobin 12.8 gm/dL (12.5-16.0); Mean Cell Volume 96.1 fl (78-100); Mean Corpuscular Hgb Conc 32.2 g/dl (32-36); Mean Platelet Volume 8.7 fl (6.0-9.5); Neutrophil # 4.5 K/mm3 (1.3-6.0); Neutrophil % 79.9 % (42-75.0); Platelet Count 196 K/mm3 (150-450); Red Blood Count 4.13 M/mm3 (4.2-5.4); Red Cell Distribution Width 13.4 % (11.5-14.0); White Blood Count 5.6 K/mm3 (4.0-10.5)
[2016-06-18 06:17] LABS: Anion Gap 11.2 mmol/L (6.8-13.8); BUN/Creatinine Ratio 20.7 (9.0-21.6); Calcium * 10.3 mg/dL (7.9-10.9); Estimated Creat Clear 44.1; Potassium 3.2 mmol/L (3.4-4.6)
[2016-06-18] MEDS: MULTIVITAMINS 1 CAP CAPSULE PO SCH (09:54)
[2016-06-18] MEDS: THIAMINE HCL 100 MG TABLET PO SCH (09:54)
[2016-06-18] MEDS: CALCIUM CARBONATE/VITAMIN D3 1 TAB TABLET PO SCH (09:54)
[2016-06-18] MEDS: GABAPENTIN 100 MG CAPSULE PO SCH ×2 (09:54→16:37)
[2016-06-18] MEDS: ESCITALOPRAM OXALATE 10 MG TAB PO SCH (09:55)
[2016-06-18] MEDS: FOLIC ACID 1 MG TABLET PO SCH (09:55)
[2016-06-18] MEDS: ENOXAPARIN SODIUM 40 MG/0.4 ML SYRG SC SCH (09:55)
[2016-06-18] MEDS: PANTOPRAZOLE SODIUM 40 MG TABLET.EC PO SCH (09:55)
[2016-06-18] MEDS: TOPIRAMATE 50 MG TABLET PO SCH ×2 (09:55→21:26)
[2016-06-18] MEDS: FLUTICASONE/SALMETEROL 14 PUFF DISK.W.DEV IH SCH ×2 (10:49→21:26)
--- NOTE | 2016-06-18 13:25 | PN ---
Subjective - Date and Time Seen Date: 06/18/16 Time: 13:21 Objective Objective Narrative: Much more alert and awake. Wants her at-home inhalers, because the advair we use here gives her thrush. Wants to walk more. Is eating ok. Off O2. Needs BiPap less. - Review of Systems Generalized/Overall Review: Reports: Malaise EENTM: Reports: No Symptoms Reported Respiratory: Reports: Cough, Shortness of Breath Cardiac: Reports: No Symptoms Reported Abdominal: Reports: No Symptoms Reported Genitourinary Symptoms: Reports: No Symptoms Reported Musculoskeletal Complaints: Reports: No Symptoms Reported Neurological: Reports: No Symptoms Reported Skin: Reports: No Symptoms Reported Endocrine: Reports: No Symptoms Reported Misc: All systems neg except as marked - Vitals Vitals: Last Vital Signs Selected Entries 06/18/16 10:22 Temperature 36.6 C Temperature Oral Source Pulse Rate 74 Respiratory 20 Rate Blood Pressure 122/65 O2 Sat by Pulse 97 Oximetry Oxygen Delivery Room Air Method - Abnormal Lab Findings Abnormal Lab Findings: Abnormal Lab Results 06/18/16 06/18/16 06/18/16 Range/Units 05:57 05:57 06:00 RBC 4.13 L (4.2-5.4) M/mm3 Immature Gran % (Auto) 1.40 H (0.001-0.429) % Immature Gran # (Auto) 0.08 H (0.000-0.0310) K/mm3 Neutrophils % 79.9 H (42-75.0) % Lymphocytes % 13.3 L (20-51) % Lymphocytes # 0.8 L (1.5-3.5) k/mm3 pO2 63.3 L (83.0-108.0) mmHg Base Excess -4.7 L (-2.0-3.0) mmol/L ABG pH 7.30 L (7.35-7.45) ABG O2 Sat (Measured) 90.0 L (94.0-98.0) % Potassium 3.2 L (3.4-4.6) mmol/L BUN 24 H (3-23) mg/dL Est GFR (Non-Af Amer) 50 L (60-130) mL/min Random Glucose 271 H D (70-110) mg/dL - Exam Constitutional: Present: Alert, Oriented x3, Cooperative, Well developed, Well nourished, No distress ENT Exam: Present: normal ENT inspection, hearing grossly normal Neck: Present: normal inspection Respiratory: Present: decreased breath sounds, expiration (prolonged) Cardiovascular/Chest: Present: regular rate, rhythm, no murmur Abdomen: Present: Normal bowel sounds, soft, nontender, nondistended, no rebound tenderness, no hepatospenomegaly, no masses Extremity: Present: normal inspection, no pedal edema Skin Exam: Present: normal color, warm/dry, no cyanosis Neurologic: Present: alert, oriented x 3 Appearance: Present: appropriate appearance, neat Eye contact: Present: cooperative, good eye contact Cauti Physician Documentation - Urinary Catheter Management Urethral (Del Cid) Date of Insertion: 06/16/16 Time of Insertion: 00:13 Date of Removal: 06/17/16 Time of Removal: 09:36 Assessment/Plan Plan Narrative: IV antibiotics. IV steroids. Breathing treatments. Increase ambulation. May use her inhalers when brought from home instead of ours. - Problems/Diagnosis (1) Acute on chronic respiratory failure Problem: Acute Qualifiers: Respiratory failure complication: hypoxia and hypercapnia Qualified Code(s) : J96.21 - Acute and chronic respiratory failure with hypoxia; J96.22 - Acute and chronic respiratory failure with hypercapnia (2) Tobacco abuse Problem: Acute (3) Alcohol abuse Problem: Acute (4) Acute exacerbation of chronic obstructive pulmonary disease (COPD) Problem: Acute (5) CHF (congestive heart failure) Problem: Chronic Qualifiers: Congestive heart failure type: unspecified congestive heart failure type Congestive heart failure chronicity: chronic Qualified Code(s): I50.9 - Heart failure, unspecified (6) Mycoplasma pneumoniae pneumonia Problem: Acute Qualifiers: Laterality: right Lung location: lower lobe of lung Qualified Code(s): J15.7 - Pneumonia due to Mycoplasma pneumoniae
[2016-06-18] MEDS: POTASSIUM CHLORIDE 20 MEQ TABLET.SA PO SCH (16:37)
[2016-06-18] MEDS: GABAPENTIN 400 MG CAPSULE PO SCH (21:26)
[2016-06-19] MEDS: AZITHROMYCIN 500 MG in DEXTROSE 5 % IN WATER 250 ML IV SCH ×2 (00:23)
[2016-06-19] MEDS: METHYLPREDNISOLONE SOD SUCC 80 MG in WATER FOR INJ.,BACTERIOSTATIC 0 ML IV SCH ×4 (00:23→20:54)
[2016-06-19] MEDS: ALBUTEROL SULFATE/IPRATROPIUM 3 ML NEBU IH SCH ×6 (02:16→22:14)
[2016-06-19 06:04] LABS: Hematocrit 35.2 % (37.0-47.0); Hemoglobin 11.7 gm/dL (12.5-16.0); Mean Cell Volume 94.1 fl (78-100); Mean Corpuscular Hemoglobin 31.3 pg (27-31); Mean Corpuscular Hgb Conc 33.2 g/dl (32-36); Mean Platelet Volume 8.9 fl (6.0-9.5); Neutrophil # 4.5 K/mm3 (1.3-6.0); Neutrophil % 82.8 % (42-75.0); Platelet Count 189 K/mm3 (150-450); Red Blood Count 3.74 M/mm3 (4.2-5.4); Red Cell Distribution Width 13.2 % (11.5-14.0); White Blood Count 5.5 K/mm3 (4.0-10.5)
[2016-06-19 06:10] LABS: Anion Gap 13.4 mmol/L (6.8-13.8); Calcium * 9.7 mg/dL (7.9-10.9); Carbon Dioxide 25.3 mmol/L (24-32.6); Estimated Creat Clear 48.7; Potassium 3.7 mmol/L (3.4-4.6)
[2016-06-19] MEDS: PANTOPRAZOLE SODIUM 40 MG TABLET.EC PO SCH (07:59)
[2016-06-19] MEDS: FLUTICASONE/SALMETEROL 14 PUFF DISK.W.DEV IH SCH ×2 (09:39→20:54)
[2016-06-19] MEDS: THIAMINE HCL 100 MG TABLET PO SCH (09:41)
[2016-06-19] MEDS: ENOXAPARIN SODIUM 40 MG/0.4 ML SYRG SC SCH (09:41)
[2016-06-19] MEDS: CALCIUM CARBONATE/VITAMIN D3 1 TAB TABLET PO SCH (09:41)
[2016-06-19] MEDS: ESCITALOPRAM OXALATE 10 MG TAB PO SCH (09:41)
[2016-06-19] MEDS: GABAPENTIN 100 MG CAPSULE PO SCH ×2 (09:41→15:56)
[2016-06-19] MEDS: FOLIC ACID 1 MG TABLET PO SCH (09:41)
[2016-06-19] MEDS: POTASSIUM CHLORIDE 20 MEQ TABLET.SA PO SCH ×2 (09:41→17:37)
[2016-06-19] MEDS: TOPIRAMATE 50 MG TABLET PO SCH ×2 (09:41→21:02)
[2016-06-19] MEDS: MULTIVITAMINS 1 CAP CAPSULE PO SCH (09:41)
--- NOTE | 2016-06-19 10:22 | PN ---
Subjective - Date and Time Seen Date: 06/19/16 Time: 10:19 Objective Objective Narrative: Much more alert and awake. Walking more. Eating well. Cough and SOB improved. - Review of Systems Generalized/Overall Review: Reports: Malaise EENTM: Reports: No Symptoms Reported Respiratory: Reports: Cough, Shortness of Breath Cardiac: Reports: No Symptoms Reported Abdominal: Reports: No Symptoms Reported Genitourinary Symptoms: Reports: No Symptoms Reported Musculoskeletal Complaints: Reports: No Symptoms Reported Neurological: Reports: No Symptoms Reported Skin: Reports: No Symptoms Reported Endocrine: Reports: No Symptoms Reported, Increased Thirst - Vitals Vitals: Last Vital Signs Selected Entries 06/19/16 06/19/16 01:41 06:47 Temperature 36.9 C Temperature Oral Source Pulse Rate 74 Respiratory 20 Rate Blood Pressure 99/59 Blood Pressure Supine Position O2 Sat by Pulse 94 Oximetry Oxygen Delivery Bi-pap Method - Abnormal Lab Findings Abnormal Lab Findings: Abnormal Lab Results 06/19/16 06/19/16 06/19/16 Range/Units 05:50 05:55 05:55 RBC 3.74 L (4.2-5.4) M/mm3 Hgb 11.7 L (12.5-16.0) gm/dL Hct 35.2 L (37.0-47.0) % MCH 31.3 H (27-31) pg Immature Gran % (Auto) 2.00 H (0.001-0.429) % Immature Gran # (Auto) 0.11 H (0.000-0.0310) K/mm3 Neutrophils % 82.8 H (42-75.0) % Lymphocytes % 11.2 L (20-51) % Lymphocytes # 0.6 L (1.5-3.5) k/mm3 pCO2 46.4 H (32.0-45.0) mmHg pO2 63.9 L (83.0-108.0) mmHg Total CO2 27.2 H (19.0-24.0) mmol/L ABG O2 Sat (Measured) 91.5 L (94.0-98.0) % Est GFR (Non-Af Amer) 56 L (60-130) mL/min Random Glucose 240 H (70-110) mg/dL - Exam Constitutional: Present: Alert, Oriented x3, Cooperative, Well developed, No distress ENT Exam: Present: normal ENT inspection, hearing grossly normal Neck: Present: normal inspection Respiratory: Present: decreased breath sounds, expiration (prolonged) Cardiovascular/Chest: Present: regular rate, rhythm, no murmur Abdomen: Present: Normal bowel sounds, soft, nontender, nondistended, no rebound tenderness, no hepatospenomegaly, no masses Extremity: Present: normal range of motion, normal inspection, no pedal edema Skin Exam: Present: normal color, warm/dry, no cyanosis Appearance: Present: appropriate appearance, neat Eye contact: Present: cooperative, good eye contact Cauti Physician Documentation - Urinary Catheter Management Urethral (Del Cid) Date of Insertion: 06/16/16 Time of Insertion: 00:13 Date of Removal: 06/17/16 Time of Removal: 09:36 Assessment/Plan Plan Narrative: IV antibiotics, steroids, breathing treatments, smoking cessation teaching, BIPAP, O2 prn. Follow labs. Home next week. - Problems/Diagnosis (1) Acute on chronic respiratory failure Problem: Acute Qualifiers: Respiratory failure complication: hypoxia and hypercapnia Qualified Code(s) : J96.21 - Acute and chronic respiratory failure with hypoxia; J96.22 - Acute and chronic respiratory failure with hypercapnia (2) Tobacco abuse Problem: Acute (3) Alcohol abuse Problem: Acute (4) Acute exacerbation of chronic obstructive pulmonary disease (COPD) Problem: Acute (5) CHF (congestive heart failure) Problem: Chronic Qualifiers: Congestive heart failure type: unspecified congestive heart failure type Congestive heart failure chronicity: chronic Qualified Code(s): I50.9 - Heart failure, unspecified (6) Mycoplasma pneumoniae pneumonia Problem: Acute Qualifiers: Laterality: right Lung location: lower lobe of lung Qualified Code(s): J15.7 - Pneumonia due to Mycoplasma pneumoniae
[2016-06-19] MEDS: INSULIN GLARGINE,HUM.REC.ANLOG 100 UNITS/ML VIAL SC SCH ×2 (10:26→21:04)
[2016-06-19] MEDS: GABAPENTIN 400 MG CAPSULE PO SCH (21:03)
[2016-06-20] MEDS: METHYLPREDNISOLONE SOD SUCC 80 MG in WATER FOR INJ.,BACTERIOSTATIC 0 ML IV SCH ×5 (00:04→22:30)
[2016-06-20] MEDS: AZITHROMYCIN 500 MG in DEXTROSE 5 % IN WATER 250 ML IV SCH ×2 (00:04)
[2016-06-20] MEDS: ALBUTEROL SULFATE/IPRATROPIUM 3 ML NEBU IH SCH ×6 (02:29→23:05)
[2016-06-20 06:09] LABS: Hematocrit 34.9 % (37.0-47.0); Hemoglobin 11.3 gm/dL (12.5-16.0); Mean Cell Volume 94.1 fl (78-100); Mean Corpuscular Hemoglobin 30.5 pg (27-31); Mean Corpuscular Hgb Conc 32.4 g/dl (32-36); Platelet Count 191 K/mm3 (150-450); Red Blood Count 3.71 M/mm3 (4.2-5.4); Red Cell Distribution Width 13.3 % (11.5-14.0)
[2016-06-20 06:12] LABS: Total Cells Counted 100
[2016-06-20 06:18] LABS: Anion Gap 14.5 mmol/L (6.8-13.8); Calcium * 9.6 mg/dL (7.9-10.9); Estimated Creat Clear 51.1; Potassium 4.5 mmol/L (3.4-4.6)
[2016-06-20] MEDS: PANTOPRAZOLE SODIUM 40 MG TABLET.EC PO SCH (06:58)
[2016-06-20 07:13] LABS: Band 4 % (0-2.0); Hypochromia 1+; Immature Granulocyte 1 (0-1); Lymphocyte 7 % (20-51); Monocyte 4 % (0-9); Neutrophil 84 % (42-75); Neutrophil # 5.9 K/mm3 (1.3-6.0)
[2016-06-20] MEDS: NICOTINE 21 MG PATC TD SCH (08:45)
[2016-06-20] MEDS: CALCIUM CARBONATE/VITAMIN D3 1 TAB TABLET PO SCH (08:46)
[2016-06-20] MEDS: FLUTICASONE/SALMETEROL 14 PUFF DISK.W.DEV IH SCH ×2 (08:46→22:31)
[2016-06-20] MEDS: ESCITALOPRAM OXALATE 10 MG TAB PO SCH (08:47)
[2016-06-20] MEDS: POTASSIUM CHLORIDE 10 MEQ TABLET.SA PO SCH (08:47)
[2016-06-20] MEDS: GABAPENTIN 100 MG CAPSULE PO SCH ×2 (08:47→14:34)
[2016-06-20] MEDS: FOLIC ACID 1 MG TABLET PO SCH (08:47)
[2016-06-20] MEDS: MULTIVITAMINS 1 CAP CAPSULE PO SCH (08:47)
[2016-06-20] MEDS: TOPIRAMATE 50 MG TABLET PO SCH ×2 (08:48→22:32)
[2016-06-20] MEDS: INSULIN GLARGINE,HUM.REC.ANLOG 100 UNITS/ML VIAL SC SCH ×2 (08:48→22:35)
[2016-06-20] MEDS: THIAMINE HCL 100 MG TABLET PO SCH (08:48)
[2016-06-20] MEDS: ENOXAPARIN SODIUM 40 MG/0.4 ML SYRG SC SCH (10:21)
--- NOTE | 2016-06-20 17:33 | PN ---
Subjective - Date and Time Seen Date: 06/20/16 Time: 07:10 Objective Objective Narrative: Much more alert and awake. Walking more. Eating well. Cough and SOB improved. - Review of Systems Generalized/Overall Review: Reports: Malaise EENTM: Reports: No Symptoms Reported Respiratory: Reports: Cough Cardiac: Reports: No Symptoms Reported Abdominal: Reports: No Symptoms Reported Genitourinary Symptoms: Reports: No Symptoms Reported Musculoskeletal Complaints: Reports: No Symptoms Reported Neurological: Reports: No Symptoms Reported Skin: Reports: No Symptoms Reported Endocrine: Reports: No Symptoms Reported Misc: All systems neg except as marked - Vitals Vitals: Last Vital Signs Selected Entries 06/20/16 06/20/16 03:00 06:21 Temperature 37 C Temperature Oral Source Pulse Rate 80 79 Respiratory 20 20 Rate Blood Pressure 110/60 Blood Pressure Supine Position O2 Sat by Pulse 95 Oximetry Oxygen Delivery Room Air Room Air Method - Abnormal Lab Findings Abnormal Lab Findings: Abnormal Lab Results 06/20/16 06/20/16 06/20/16 Range/Units 05:55 05:55 06:00 RBC 3.71 L (4.2-5.4) M/mm3 Hgb 11.3 L (12.5-16.0) gm/dL Hct 34.9 L (37.0-47.0) % Neutrophils % (Manual) 84 H (42-75) % Band Neuts % (Manual) 4 H (0-2.0) % Lymphocytes % (Manual) 7 L (20-51) % Lymphocytes # (Manual) 0.5 L (1.5-3.5) k/mm3 pO2 61.2 L (83.0-108.0) mmHg Base Excess -3.3 L (-2.0-3.0) mmol/L ABG O2 Sat (Measured) 91.4 L (94.0-98.0) % Carbon Dioxide 22.0 L (24-32.6) mmol/L Anion Gap 14.5 H (6.8-13.8) mmol/L Est GFR (Non-Af Amer) 59 L (60-130) mL/min BUN/Creatinine Ratio 22.0 H (9.0-21.6) Random Glucose 186 H (70-110) mg/dL - Exam Constitutional: Present: Alert, Oriented x3, Cooperative, Well developed, No distress ENT Exam: Present: normal ENT inspection, hearing grossly normal Neck: Present: normal inspection Respiratory: Present: no respiratory distress, rhonchi Cardiovascular/Chest: Present: regular rate, rhythm, no murmur Abdomen: Present: Normal bowel sounds, soft, nontender, nondistended, no rebound tenderness, no hepatospenomegaly, no masses Extremity: Present: normal inspection, no pedal edema Skin Exam: Present: normal color, warm/dry, no cyanosis Neurologic: Present: alert, oriented x 3 Appearance: Present: appropriate appearance, neat Eye contact: Present: cooperative, good eye contact, normal speech Cauti Physician Documentation - Urinary Catheter Management Urethral (Del Cid) Date of Insertion: 06/16/16 Time of Insertion: 00:13 Date of Removal: 06/17/16 Time of Removal: 09:36 Assessment/Plan Plan Narrative: IV antibiotics. IV steroids. Breathing treatments. PRN Bipap and O2. Follow labs. Home in 1-2 days. Smoking cessation. Nicotine patches. Alcohol cessation (says she is NOT back to drinking again.) - Problems/Diagnosis (1) Acute on chronic respiratory failure Problem: Acute Qualifiers: Respiratory failure complication: hypoxia and hypercapnia Qualified Code(s) : J96.21 - Acute and chronic respiratory failure with hypoxia; J96.22 - Acute and chronic respiratory failure with hypercapnia (2) Tobacco abuse Problem: Acute (3) Alcohol abuse Problem: Acute (4) Acute exacerbation of chronic obstructive pulmonary disease (COPD) Problem: Acute (5) CHF (congestive heart failure) Problem: Chronic Qualifiers: Congestive heart failure type: unspecified congestive heart failure type Congestive heart failure chronicity: chronic Qualified Code(s): I50.9 - Heart failure, unspecified (6) Mycoplasma pneumoniae pneumonia Problem: Acute Qualifiers: Laterality: right Lung location: lower lobe of lung Qualified Code(s): J15.7 - Pneumonia due to Mycoplasma pneumoniae
[2016-06-20] MEDS: GABAPENTIN 400 MG CAPSULE PO SCH (22:31)
[2016-06-21] MEDS: AZITHROMYCIN 500 MG in DEXTROSE 5 % IN WATER 250 ML IV SCH ×2 (00:52)
[2016-06-21] MEDS: ALBUTEROL SULFATE/IPRATROPIUM 3 ML NEBU IH SCH ×3 (02:33→10:10)
[2016-06-21] MEDS: METHYLPREDNISOLONE SOD SUCC 80 MG in WATER FOR INJ.,BACTERIOSTATIC 0 ML IV SCH ×2 (04:23→10:25)
[2016-06-21 06:33] LABS: Anion Gap 12.4 mmol/L (6.8-13.8); BUN/Creatinine Ratio 23.1 (9.0-21.6); Calcium * 9.5 mg/dL (7.9-10.9); Carbon Dioxide 24.6 mmol/L (24-32.6); Estimated Creat Clear 49.2
--- NOTE | 2016-06-21 07:40 | DS ---
(1) Acute on chronic respiratory failure Problem: Resolved Qualifiers: Respiratory failure complication: hypoxia and hypercapnia Qualified Code(s) : J96.21 - Acute and chronic respiratory failure with hypoxia; J96.22 - Acute and chronic respiratory failure with hypercapnia (2) Tobacco abuse Problem: Chronic (3) Alcohol abuse Problem: Ruled-out (4) Acute exacerbation of chronic obstructive pulmonary disease (COPD) Problem: Acute (5) CHF (congestive heart failure) Problem: Chronic Qualifiers: Congestive heart failure type: unspecified congestive heart failure type Congestive heart failure chronicity: chronic Qualified Code(s): I50.9 - Heart failure, unspecified (6) Mycoplasma pneumoniae pneumonia Problem: Acute Qualifiers: Laterality: right Lung location: lower lobe of lung Qualified Code(s): J15.7 - Pneumonia due to Mycoplasma pneumoniae Description of Stay: Gradual improvement with IV steroids, IV antibiotics, breathing treatments, BiPap and O2. Gradually O2 then Bipap were weaned, now doesn't need either and is walking in the halls. She intends to stop smoking. Both she and her daughter say she is NOT back to drinking alcohol again. Blood sugars are up, treated here with long acting insulin, but I anticipate they will come down as she comes off steroids. We will check blood sugar again in a week. Procedures Performed: none Discharge Disposition: Home self care Disposition: Home self-care Condition: Good Discharge Activity: Activity as tolerated - No Smoking Problem Oriented Discharge Instructions to Patient/Family: Chronic Obstructive Pulmonary Disease Exacerbation, [id number], Acute Respiratory Failure Additional Patient Instructions (free text): [facility]. Please fax orders, face to face, H&P and d/c summary upon discharge. CBC BMP blood test in 1 week. Refer to [place] [facility] before discharge. Dr. Valera in 1 week. Prescriptions (Any new or edited meds): Cefuroxime Axetil [Ceftin] 500 mg PO BID #30 tab Nicotine [Nicoderm] 21 mg TD Q24H #30 patch.td24 predniSONE [Prednisone] 3 tab PO BID #60 tab Complete Home Medications List: Complete Home Medication List: Aclidinium Russell [Tudorza Pressair] 1 puff IH BID 06/16/16 Albuterol Sulfate 2.5 mg IH Q1H PRN 06/16/16 Albuterol Sulfate [Ventolin HFA] 1 puff IH Q6H PRN 06/16/16 Calcium Carbonate/Vitamin D3 [Calcium 600-Vit D3 400 Tablet] 1 each PO DAILY 05/21 Escitalopram Oxalate [Lexapro] 10 mg PO DAILY 06/16/16 Folic Acid 1 mg PO DAILY 06/16/16 Gabapentin 100 mg PO BID 06/16/16 Gabapentin 400 mg PO HS 06/16/16 LORazepam [Ativan] 1 mg PO Q4H PRN 06/16/16 Mometasone/Formoterol [Dulera 200 Mcg/5 Mcg Inhaler] 2 puff IH BID 06/16/16 Multivitamin [One Daily Essential] 1 each PO DAILY 06/16/16 Omeprazole [Prilosec] 40 mg PO DAILY 06/16/16 Polyvinyl Alcohol [Artificial Tears] 1 drop OP QID PRN 06/16/16 Salsalate 500 mg PO QID PRN 06/16/16 Sodium Chloride [Saline Nasal Mist] 4 spray NS Q4H PRN 06/16/16 Topiramate [Topamax] 100 mg PO BID 06/16/16 busPIRone HCL [Buspar] 10 mg PO BID 06/16/16 Cefuroxime Axetil [Ceftin] 500 mg PO BID #30 tab 06/21/16 Nicotine [Nicoderm] 21 mg TD Q24H #30 patch.td24 06/21/16 predniSONE [Prednisone] 3 tab PO BID #60 tab 06/21/16
[2016-06-21] MEDS: PANTOPRAZOLE SODIUM 40 MG TABLET.EC PO SCH (07:51)
[2016-06-21] MEDS: NICOTINE 21 MG PATC TD SCH (09:20)
[2016-06-21] MEDS: FLUTICASONE/SALMETEROL 14 PUFF DISK.W.DEV IH SCH (09:24)
[2016-06-21] MEDS: CALCIUM CARBONATE/VITAMIN D3 1 TAB TABLET PO SCH (09:24)
[2016-06-21] MEDS: FOLIC ACID 1 MG TABLET PO SCH (09:25)
[2016-06-21] MEDS: POTASSIUM CHLORIDE 10 MEQ TABLET.SA PO SCH (09:25)
[2016-06-21] MEDS: ESCITALOPRAM OXALATE 10 MG TAB PO SCH (09:25)
[2016-06-21] MEDS: MULTIVITAMINS 1 CAP CAPSULE PO SCH (09:26)
[2016-06-21] MEDS: GABAPENTIN 100 MG CAPSULE PO SCH (09:26)
[2016-06-21] MEDS: TOPIRAMATE 50 MG TABLET PO SCH (09:33)
[2016-06-21] MEDS: THIAMINE HCL 100 MG TABLET PO SCH (09:33)
[2016-06-21] MEDS: INSULIN GLARGINE,HUM.REC.ANLOG 100 UNITS/ML VIAL SC SCH (09:34)
[2016-06-21] MEDS: ENOXAPARIN SODIUM 40 MG/0.4 ML SYRG SC SCH (09:36)
[2016-06-21 10:17] VITALS: BP 112/62
== END 2016-06-21 12:45 | disposition home health service (06) | DRG 189 ==
LOC: ER 18:18 → MS 21:59
PROVIDERS: ADMIT Nurse Practitioner; ATTEND Allergy & Immunology
PROC: 4A033R1 Measurement of Arterial Saturation, Peripheral, Percutaneous Approach (ICD-10-PCS; principal; 2016-06-16)
DX: J96.21 Acute and chronic respiratory failure with hypoxia (principal); J15.7 Pneumonia due to Mycoplasma pneumoniae; J44.1 Chronic obstructive pulmonary disease with (acute) exacerbation; I50.9 Heart failure, unspecified; J96.22 Acute and chronic respiratory failure with hypercapnia; D50.9 Iron deficiency anemia, unspecified; F17.210 Nicotine dependence, cigarettes, uncomplicated

== ENCOUNTER 2016-07-08 18:09 | Emergency (ER) | payer MEDICARE ==
[2016-07-08 18:09] VITALS: BP 112/62
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
[2016-07-08] MEDS ORDERED: IBUPROFEN 400 MG TABLET PO ONE (21:45)
[2016-07-08] MEDS ORDERED: IBUPROFEN 400 MG TABLET ONE (21:47)
== END 2016-07-08 21:58 | disposition home or self-care (01) ==
LOC: ER 18:09
DX: S42.001A Fracture of unspecified part of right clavicle, initial encounter for closed fracture (principal); M25.512 Pain in left shoulder; W19.XXXA Unspecified fall, initial encounter; F17.210 Nicotine dependence, cigarettes, uncomplicated

== ENCOUNTER 2017-01-04 09:54 | Day surgery (SDC) | payer MEDICARE, BC ==
[~2017-01-04 09:54] MED LIST: RINGERS SOLUTION,LACTATED 1,000 ML IV PRN
[2017-01-04] MEDS ORDERED: RINGERS SOLUTION,LACTATED 1,000 ML IV ONE (10:43)
[2017-01-04] MEDS ORDERED: RINGERS SOLUTION,LACTATED 1,000 ML IV PRN (14:04)
[2017-01-04 14:35] VITALS: BP 114/59
--- NOTE | 2017-01-04 15:59 | OR ---
Operative Report - Dictated Report Narrative: OPERATIVE REPORT DATE OF OPERATION: 01/04/2017 PREOPERATIVE DIAGNOSIS: Family history of colon cancer. No prior dedicated colon studies POSTOPERATIVE DIAGNOSIS: 0.5 cm area of polypoid change (pathology pending). Very capacious/redundant colon with exam only accomplished to the presumed hepatic flexure OPERATION: Colonoscopy to the presumed hepatic flexure (160 cm). Hot biopsy forceps polypectomy in the presumed descending colon SURGEON: Cinthia Waters MD ANESTHESIA: SAE De La Rosa CRNA INDICATIONS FOR PROCEDURE: The patient is a 66-year-old female referred for an initial colon screening by Dr. Taurus Powell. She has had no previous dedicated colon studies. Her father had colon cancer at age 88. The patient has alternating hard and loose stools with "lots of abdominal noise" FINDINGS: Very capacious redundant colon requiring 160 cm of examining scope to reach the presumed hepatic flexure. (Cecum not seen). 0.5 cm area of polypoid change (pathology pending NARRATIVE OF PROCEDURE: The patient was identified in the holding area, and prior to the administration of anesthetic, a multidisciplinary timeout was observed. With the patient in the left lateral position and after the administration of intravenous sedation, the perineum was inspected. There was no evidence of pilonidal disease. There was scaling skin/lichenification over the ischial tuberosities but no shanon open areas. The external appearance of the anus was normal. Sphincter tone was good. The flexible fiberoptic colonoscope was inserted into the rectum which was insufflated with air. The rectal mucosa and submucosal vascular pattern appeared normal, the prep was seen to be complete with the exception of some liquid which could be suctioned. The scope was advanced through the sigmoid colon, up the descending colon, and around the splenic flexure where the triangular haustral architecture of the transverse colon was seen. The scope was advanced across the transverse colon to the full 160 cm of examining scope. Despite the use of standard reduction maneuvers and gentle external manual compression on the abdomen, the scope could not be advanced around the hepatic flexure to the cecum. The scope was withdrawn and readvanced on 3 separate occasions with similar results. The mucosa at the proximal most attained level appeared normal. The scope was then slowly withdrawn in a circular fashion so that all aspects of colonic mucosa were inspected. The colon was extremely capacious and character and redundant in course. The haustral architecture appeared well preserved throughout with no evidence of external compression. The mucosa and submucosal vascular pattern appeared normal, specifically there was no gross evidence to suggest colitis or inflammatory bowel disease and no AV malformations were seen. No diverticulosis was demonstrated. A 0.5 cm area of polypoid change was identified in the presumed descending colon. This was biopsied and then thoroughly destroyed with electrocautery. The site was seen to be complete and hemostatic. The scope was gradually withdrawn to the level of the rectum. As much insufflated air as possible was removed. The scope was withdrawn from the patient and the procedure terminated. The patient tolerated the anesthetic and procedure well without complication and was transferred back to the ambulatory surgery area awake and in stable condition. The patient remained stable throughout a period of postoperative observation. She denied abdominal discomfort, was able to tolerate by mouth intake, and was up without assistance. I shared the operative findings with the patient and she was given copies of the photographs which appear in the medical record. She was discharged home with instructions not to engage in hazardous activity today , but may resume normal activity tomorrow, and advance diet as tolerated. She is to continue those medications as listed in the history and physical exam. I made arrangements to contact her with the biopsy reports and will make additional recommendations for treatment and follow-up based upon those results. It was explained that because the proximal colon was not visualized, a completion barium enema after healing of her polypectomy would be in order to clear the proximal colon. Reviewed in electronically signed
== END 2017-01-04 09:55 | disposition home or self-care (01) ==
LOC: AMB 09:54
PROVIDERS: ATTEND Surgery
PROC: 0DBM8ZX Excision of Descending Colon, Via Natural or Artificial Opening Endoscopic, Diagnostic (ICD-10-PCS; principal; 2017-01-04 11:30)
DX: Z12.11 Encounter for screening for malignant neoplasm of colon (principal); D12.4 Benign neoplasm of descending colon; I50.9 Heart failure, unspecified; J44.9 Chronic obstructive pulmonary disease, unspecified; D50.9 Iron deficiency anemia, unspecified; F17.200 Nicotine dependence, unspecified, uncomplicated; Z68.20 Body mass index [BMI] 20.0-20.9, adult; Z80.0 Family history of malignant neoplasm of digestive organs

== ENCOUNTER 2018-10-10 21:03 | Inpatient (IN) ==
[2018-10-10] MEDS ORDERED: MORPHINE SULFATE 2 MG/ML DISP.SYRIN IV ONE (21:11)
[2018-10-10] MEDS ORDERED: ONDANSETRON HCL/PF 2 MG/ML VIAL IV ONE (21:11)
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
[2018-10-10 21:22] LABS: Hematocrit 36.8 % (37.0-47.0); Mean Cell Volume 100.8 fl (78-100); Mean Corpuscular Hemoglobin 32.9 pg (27-31); Mean Corpuscular Hgb Conc 32.6 g/dl (32-36); Mean Platelet Volume 9.3 fl (8-12.5); Neutrophil # 2.4 K/mm3 (1.3-6.0); Neutrophil % 47.6 % (42-75.0); Platelet Count 148 K/mm3 (150-450); Red Blood Count 3.65 M/mm3 (4.2-5.4); Red Cell Distribution Width 12.5 % (11.5-14.0); White Blood Count 5.1 K/mm3 (4.0-10.5)
[2018-10-10] MEDS ORDERED: NORMAL SALINE 1,000 ML IV ONE (21:26)
[2018-10-10 21:30] LABS: BUN/Creatinine Ratio 11.6 (9.0-21.6); Calcium * 9.3 mg/dL (7.9-10.9); Carbon Dioxide 22.9 mmol/L (24-32.6); Potassium 3.9 mmol/L (3.4-4.6)
[2018-10-10] MEDS ORDERED: MORPHINE SULFATE 2 MG/ML DISP.SYRIN IV PRN (23:25)
[2018-10-11] MEDS ORDERED: GABAPENTIN 400 MG CAPSULE ONE (01:17)
[2018-10-11] MEDS: GABAPENTIN 400 MG CAPSULE PO SCH ×3 (01:19→21:56)
[2018-10-11] MEDS ORDERED: NORMAL SALINE 1,000 ML IV PRN (01:45)
[2018-10-11] MEDS ORDERED: ALBUTEROL SULFATE/IPRATROPIUM 3 ML NEBU IH PRN (08:35)
--- NOTE | 2018-10-11 08:36 | CONS ---
HPI - General Date of Service: 10/11/18 Narrative: Niall is a 68-year-old female who sustained a ground-level fall at home after tripping over some pads that she has on the ground for her dog. She reports severe onset of left hip pain after the fall. She try to get up and ambulate but was unable to. She was brought into the emergency department via ambulance and evaluated and found to have an impacted hip fracture. She is currently admitted for pain control and treatment. She reports no other complaints of injuries or pain. - History of Present Illness Allergies/Adverse Reactions: Allergies codeine Adverse Reaction (Intermediate, Verified 10/10/18 21:13) NAUSEA, MAKES HER FORGET TO BREATHE Home Medications: Home Medications Medication Instructions Recorded Last Taken Calcium Carbonate/Vitamin D3 1 ea PO DAILY 06/16/16 10/10/18 10:30 [Calcium 600-Vit D3 400 Tablet] Multivitamins [Multivitamin Karena] 1 cap PO DAILY 12/26/16 10/10/18 10:30 montelukast 10 mg tablet 10 mg PO QPM #30 tab 12/05/17 10/10/18 21:00 oxybutynin chloride ER 10 mg 10 mg PO DAILY 01/01/18 10/10/18 10:30 tablet,extended release 24 hr Magnesium Oxide [Magnesium] 500 mg PO DAILY 04/03/18 10/10/18 10:30 bupropion HCl SR 150 mg tablet,12 150 mg PO BID #60 tab 07/03/18 10/10/18 10:30 hr sustained-release omeprazole 40 mg capsule,delayed 40 mg PO DAILY #30 cap 08/24/18 10/10/18 10:30 release nystatin 100,000 unit/gram topical 1 applic TP BID #60 g 09/19/18 10/10/18 10:30 powder Diphenhydramine HCl [Wal-Dryl] 25 mg PO TID 10/10/18 10/10/18 09:00 Gabapentin 400 mg PO DAILY 10/10/18 10/10/18 10:30 Gabapentin 400 mg PO HS 10/10/18 10/10/18 21:00 Ipratropium/Albuterol Sulfate 3 ml INHALATION QID PRN 10/10/18 Unknown [Iprat-Albut 0.5-3(2.5) mg/3 ml] Procedures Measurement of Arterial Saturation, Peripheral, Percutaneous Approach (06/15/16) Medications - Medications Current Medications: Current Medications Gabapentin (Neurontin) 400 mg PO BID PAIGE Stop: 11/10/18 01:16 Last Admin: 10/11/18 01:19 Dose: 400 mg Documented by: Sodium Chloride (Sodium Chloride 0.9%) 1,000 mls @ 70 mls/hr IV .[id number] PRN PRN Reason: HYDRATION Last Admin: 10/11/18 01:46 Dose: 70 mls/hr Documented by: Physical Examination - Exam Narrative: Pain in the left inguinal groin area with palpation. 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 No reported tenderness in the thigh knee lower extremity ankle or foot. Patient reports sensation intact to light touch. 1+ posterior tibial pulse. Patient is able to plantarflex and dorsiflex the ankle. X-rays reviewed show an impacted and valgus subcapital hip fracture. No significant displacement or angulation. Hemoglobin is 12.0 at this point time platelet count 148,000 BMP is unremarkable Vital Signs: Vital Signs - Last Taken Temp 36.6 C 10/11/18 07:00 Pulse 86 10/11/18 07:00 Resp 16 10/11/18 07:00 BP 107/59 10/11/18 07:00 Pulse Ox 93 10/11/18 07:00 O2 Oxygen Delivery Method Room Air Constitutional: Present: Alert, Oriented x3, Cooperative, Mild distress - Results and Findings: Lab/Microbiology results last 24 hrs: Abnormal/Pending Laboratory Last 24 HRS 10/10/18 10/10/18 21:20 21:20 RBC 3.65 L Hgb 12.0 L Hct 36.8 L MCV 100.8 H MCH 32.9 H Plt Count 148 L Carbon Dioxide 22.9 L Est GFR (Non-Af Amer) 44 L - Assessments/Findings (1) Hip fracture, left Diagnosis(s): Closed reduction and internal fixation of left subcapital hip fracture discussed. Risks of neurovascular injury, DVT, hardware complications, failure of the fracture to heal, need for further surgery with replacement, infection as well as anesthesia risks of heart attack and stroke discussed. Consents obtained. Patient have a gram of Ancef IV preop. Problem: Acute Qualifiers: Encounter type: initial encounter Fracture type: closed Qualified Code(s): S72.002A - Fracture of unspecified part of neck of left femur, initial encounter for closed fracture (2) Osteoporosis Problem: Chronic (3) COPD (chronic obstructive pulmonary disease) Problem: Chronic Qualifiers: (4) CHF (congestive heart failure) Problem: Chronic (5) Anemia Problem: Acute (6) CHF (congestive heart failure) Problem: Chronic (7) Tobacco abuse Problem: Chronic (8) Alcohol abuse Problem: Chronic (9) Fall Problem: Acute
[2018-10-11] MEDS ORDERED: diphenhydrAMINE HCL 25 MG CAPSULE PO PRN (09:00)
[2018-10-11] MEDS ORDERED: OMEPRAZOLE 20 MG CAPSULE.SA PO SCH (09:00)
[2018-10-11] MEDS ORDERED: ceFAZolin SODIUM 1 GM in DEXTROSE 5 % IN WATER 100 ML IV PRN ×2 (09:00)
[2018-10-11] MEDS: NYSTATIN 15 APPL BTL TP SCH ×2 (10:22→21:56)
--- NOTE | 2018-10-11 14:35 | ANES ---
Anesthesia Pre Procedure Eval Vitals/Labs: Last Vital Signs Temp 37.3 C 10/11/18 13:56 Pulse 84 10/11/18 13:56 Resp 16 10/11/18 13:56 BP 129/66 10/11/18 13:56 Pulse Ox 91 L 10/11/18 13:56 HOME MEDICATIONS Calcium Carbonate/Vitamin D3 [Calcium 600-Vit D3 400 Tablet] 1 ea PO DAILY 06/16/16 [Last Taken 10/10/18 10:30] Multivitamins [Multivitamin Karena] 1 cap PO DAILY 12/26/16 [Last Taken 10/10/18 10:30] montelukast 10 mg tablet 10 mg PO QPM #30 tab 12/05/17 [Last Taken 10/10/18 21:00] oxybutynin chloride ER 10 mg tablet,extended release 24 hr 10 mg PO DAILY 01/01/18 [Last Taken 10/10/18 10:30] Magnesium Oxide [Magnesium] 500 mg PO DAILY 04/03/18 [Last Taken 10/10/18 10:30] bupropion HCl SR 150 mg tablet,12 hr sustained-release 150 mg PO BID #60 tab 07/03/18 [Last Taken 10/10/18 10:30] omeprazole 40 mg capsule,delayed release 40 mg PO DAILY #30 cap 08/24/18 [Last Taken 10/10/18 10:30] nystatin 100,000 unit/gram topical powder 1 applic TP BID #60 g 09/19/18 [Last Taken 10/10/18 10:30] Diphenhydramine HCl [Wal-Dryl] 25 mg PO TID 10/10/18 [Last Taken 10/10/18 09:00] Gabapentin 400 mg PO DAILY 10/10/18 [Last Taken 10/10/18 10:30] Gabapentin 400 mg PO HS 10/10/18 [Last Taken 10/10/18 21:00] Ipratropium/Albuterol Sulfate [Iprat-Albut 0.5-3(2.5) mg/3 ml] 3 ml INHALATION QID PRN 10/10/18 [Last Taken Unknown] Allergies/Adverse Reactions: Allergies Allergy/AdvReac Type Severity Reaction Status Date / Time codeine AdvReac Intermediate NAUSEA, Verified 10/10/18 21:13 MAKES HER FORGET TO BREATHE - Planned Procedure Planned Procedure: L HIP FRACTURE Medication List Reviewed:: Yes Allergies Verified: Yes Medical History (Updated 10/11/18 @ 08:36 by ARMAAN De Jesus) Asthma attack (Chronic) Cough (Acute) Osteoporosis (Chronic) Osteoarthrosis (Chronic) COPD (chronic obstructive pulmonary disease) (Chronic) CHF (congestive heart failure) (Chronic) Anemia (Acute) Blindness left eye Overactive bladder Onset Date: 12/28/17 [facility]. Dr. Kiara Eden Urge incontinence Onset Date: 12/28/17 [facility] Vulvar lesion Onset Date: 12/28/17 [facility]. Abnormal Pap smear of vagina Acne Alkalosis Balance disorder Bilateral shoulder pain defect Bronchitis Coloboma of both optic discs Fracture, humerus closed Generalized muscle weakness Hypercalcemia S/P ORIF (open reduction internal fixation) fracture 2013, 2015. Right ulna/radius 2013 x2. 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 Tubular adenoma Umbilical hernia [place] teeth extracted 1974 Surgical History (Updated 10/11/18 @ 08:36 by ARMAAN De Jesus) H/O colonoscopy 01/04/17- dr wilder- tubular adenoma H/O ovarian cystectomy 1971 H/O umbilical hernia repair History of cataract surgery History of colposcopy History of dilatation and curettage 1972, 1973 History of endometrial ablation History of tonsillectomy and adenoidectomy Family History (Updated 12/03/17 @ 16:41 by Erin Marx LPN) Brother Hypertension Heart disease Father , age 89 Cancer colon cancer Parkinson disease Mother , age 76 Cancer lung Arthritis - Family Anesthesia History Family History:: no untoward family reactions to anesthesia, no familial bleeding tendencies, no family history of clotting disorders, no family history of premature - Airway/Neck/Teeth Within Normal Limits:: Yes Teeth Condition: missing Mallampatti Score: 2 Thyromental (T-M) distance: > 6 cm Mandibulo Hyoid distance: > 3 cm - Respiratory Respiratory History: asthma, COPD Respiratory Physical: rhonchi Smoking Status: Current every day smoker Discussed smoking cessation including day of surgery: Yes Sleep Apnea currently treated: No Sleep Apnea by current assessment: No Discussed Risks/Treatment of ANNA: No - Cardiovascular Tolerate Activity: Fair Heart Sounds: S1 & S2, Regular - Anesthesia Assessment and Plan ASA Class: PS, III, E Anesthesia Type Plan: General LMA
--- NOTE | 2018-10-11 16:39 | HP ---
Chief Complaint - Chief Complaint Date of Service: 10/11/18 Time of Service: 07:30 Chief Complaint: L. hip pain due to fracture History of Present Illness: Niall Jean-Baptiste is a 68-year-old female who tripped at home and fell onto her left hip. She is unable to bear weight. EMS was summoned to the [facility] evaluated in radiology reveals a fractured left hip. She is to have an ORIF of the hip are today. Injury occurred when she was walking on some plastic covering her carpets. She placed a plastic mat so that her dog won't urinate on the carpet. The soles of her tennis shoes grabbed the plastic and caused her to fall. She also has an abrasion on the crown area of the scalp. Medical History (Updated 10/11/18 @ 08:36 by ARMAAN De Jesus) Asthma attack (Chronic) Cough (Acute) Osteoporosis (Chronic) Osteoarthrosis (Chronic) COPD (chronic obstructive pulmonary disease) (Chronic) CHF (congestive heart failure) (Chronic) Anemia (Acute) Blindness left eye Overactive bladder Onset Date: 12/28/[address] [facility] Kiara Eden Urge incontinence Onset Date: 12/28/17 [facility] Vulvar lesion Onset Date: 12/28/17 [facility]. Abnormal Pap smear of vagina Acne Alkalosis Balance disorder Bilateral shoulder pain defect Bronchitis Coloboma of both optic discs Fracture, humerus closed Generalized muscle weakness Hypercalcemia S/P ORIF (open reduction internal fixation) fracture 2013, 2015. Right ulna/radius 2014 x2. 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 Tubular adenoma Umbilical hernia [place] teeth extracted 1974 Surgical History: Surgical History (Updated 10/11/18 @ 08:36 by ARMAAN De Jesus) H/O colonoscopy 01/04/17- dr wilder- tubular adenoma H/O ovarian cystectomy 1971 H/O umbilical hernia repair History of cataract surgery History of colposcopy History of dilatation and curettage 1972, 1973 History of endometrial ablation History of tonsillectomy and adenoidectomy Family History: Family History (Updated 12/03/17 @ 16:41 by Erin Marx LPN) Brother Hypertension Heart disease Father , age 89 Cancer colon cancer Parkinson disease Mother , age 76 Cancer lung Arthritis Social History: Patient Lives/Resources Home Utilized Occupation retired Preferred Language Georgian Do you have any restorationism or Yes: anabaptist cultural preference? Smoking Status Current every day smoker Have you smoked in the past 12 Yes months Do you dip or chew tobacco No Abuse History No History of abuse Psych History Hx of Anxiety,Hx of Depression,Currently on Meds Alcohol Use none Drug Use none (Last Reviewed 10/02/18 @ 10:44 by Olga Renteria CMA) No Social History Section defined Review Of Systems (GEN) - Review of Systems EENTM: Present: No Symptoms Reported Respiratory: Present: No Symptoms Reported Cardiac: Present: No Symptoms Reported Abdominal: Present: No Symptoms Reported Genitourinary: Present: No Symptoms Reported Musculoskeletal: Present: Joint Pain - Left hip pain Neurological: Present: No Symptoms Reported Skin: Present: No Symptoms Reported Endocrine: Present: No Symptoms Reported Misc: All systems neg except as marked Immunizations: IMMUNIZATION HX Immunizations Up to Date Yes History of Influenza Vaccine Yes Hx Pneumococcal Vaccination No Allergies/Adverse Reactions: Allergies Allergy/AdvReac Type Severity Reaction Status Date / Time codeine AdvReac Intermediate NAUSEA, Verified 10/10/18 21:13 MAKES HER FORGET TO BREATHE Home Medications: HOME MEDICATIONS Calcium Carbonate/Vitamin D3 [Calcium 600-Vit D3 400 Tablet] 1 ea PO DAILY 06/16/16 [Last Taken 10/10/18 10:30] Multivitamins [Multivitamin Karena] 1 cap PO DAILY 12/26/16 [Last Taken 10/10/18 10:30] montelukast 10 mg tablet 10 mg PO QPM #30 tab 12/05/17 [Last Taken 10/10/18 21:00] oxybutynin chloride ER 10 mg tablet,extended release 24 hr 10 mg PO DAILY 01/01/18 [Last Taken 10/10/18 10:30] Magnesium Oxide [Magnesium] 500 mg PO DAILY 04/03/18 [Last Taken 10/10/18 10:30] bupropion HCl SR 150 mg tablet,12 hr sustained-release 150 mg PO BID #60 tab 07/03/18 [Last Taken 10/10/18 10:30] omeprazole 40 mg capsule,delayed release 40 mg PO DAILY #30 cap 08/24/18 [Last Taken 10/10/18 10:30] nystatin 100,000 unit/gram topical powder 1 applic TP BID #60 g 09/19/18 [Last Taken 10/10/18 10:30] Diphenhydramine HCl [Wal-Dryl] 25 mg PO TID 10/10/18 [Last Taken 10/10/18 09:00] Gabapentin 400 mg PO DAILY 10/10/18 [Last Taken 10/10/18 10:30] Gabapentin 400 mg PO HS 10/10/18 [Last Taken 10/10/18 21:00] Ipratropium/Albuterol Sulfate [Iprat-Albut 0.5-3(2.5) mg/3 ml] 3 ml INHALATION QID PRN 10/10/18 [Last Taken Unknown] Exam - Exam Vital Signs: Vital Signs - Last Taken Temp 37.3 C 10/11/18 13:56 Pulse 84 10/11/18 13:56 Resp 16 10/11/18 13:56 BP 129/66 10/11/18 13:56 Pulse Ox 91 L 10/11/18 13:56 Constitutional: Present: Alert, Oriented x3, Cooperative, Well developed, Well nourished, Mild distress ENT Exam: Present: normal ENT inspection, hearing grossly normal, pharynx normal, TMs normal Eye Exam: bilateral eye: normal inspection, PERRL, EOMI Neck: Present: non-tender, full range of motion, supple, normal inspection, trachea midline Back Exam: Present: normal inspection, no CVA tenderness, no vertebral tenderness Respiratory: Present: chest non-tender, lungs clear, normal breath sounds, no re spiratory distress, no accessory muscle use Cardiovascular/Chest: Present: normal peripheral pulses, regular rate, rhythm, no chest tenderness, no edema, no gallop, no JVD, no murmur, no rub Peripheral Pulses: carotid (R): 2+, carotid (L): 2+, radial (R): 2+, radial (L): 2+ Abdomen: Present: Normal bowel sounds, soft, nontender, nondistended, no rebound tenderness, no hepatospenomegaly, no masses /Rectal: Present: Exam deferred Extremity: Present: normal range of motion - Except for the left hip., other - The left leg is shortened and externally rotated consistent with a known left hip fracture. 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: pulp beater II-XII nml as tested, normal cerebellar test, no motor/sensory deficits, alert, normal mood/affect, oriented x 3 Appearance: Present: appropriate appearance, appropriate insight, neat Eye contact: Present: cooperative, good eye contact, normal speech, avoids eye contact Thoughts: Present: normal thought pattern, no apparent hallucination Diagnostic Studies: Abnormal Lab Results 10/10/18 10/10/18 Range/Units 21:20 21:20 RBC 3.65 L (4.2-5.4) M/mm3 Hgb 12.0 L (12.5-16.0) gm/dL Hct 36.8 L (37.0-47.0) % MCV 100.8 H (78-100) fl MCH 32.9 H (27-31) pg Plt Count 148 L (150-450) K/mm3 Carbon Dioxide 22.9 L (24-32.6) mmol/L Est GFR (Non-Af Amer) 44 L (60-130) mL/min Laboratory Results WBC 5.1 K/mm3 (4.0-10.5) 10/10/18 21:20 RBC 3.65 M/mm3 (4.2-5.4) L 10/10/18 21:20 Hgb 12.0 gm/dL (12.5-16.0) L 10/10/18 21:20 Hct 36.8 % (37.0-47.0) L 10/10/18 21:20 MCV 100.8 fl (78-100) H 10/10/18 21:20 MCH 32.9 pg (27-31) H 10/10/18 21:20 MCHC 32.6 g/dl (32-36) 10/10/18 21:20 RDW 12.5 % (11.5-14.0) 10/10/18 21:20 Plt Count 148 K/mm3 (150-450) L 10/10/18 21:20 MPV 9.3 fl (8-12.5) 10/10/18 21:20 Immature Gran % (Auto) 0.20 % (0.001-0.429) 10/10/18 21:20 Immature Gran # (Auto) 0.01 K/mm3 (0.000-0.0310) 10/10/18 21:20 47.6 % (42-75.0) 10/10/18 21:20 40.9 % (20-51) 10/10/18 21:20 8.1 % (0.0-9) 10/10/18 21:20 2.8 % (0.0-3.0) 10/10/18 21:20 0.4 % (0.0-1.0) 10/10/18 21:20 Nucleated RBC % 0.0 k/mm3 (0-1) 10/10/18 21:20 2.4 K/mm3 (1.3-6.0) 10/10/18 21:20 2.07 k/mm3 (1.5-3.5) 10/10/18 21:20 0.4 k/mm3 (0.0-1.0) 10/10/18 21:20 0.1 k/mm3 (0.0-0.7) 10/10/18 21:20 Absolute Basophils 0.0 k/mm3 (0.0-0.1) 10/10/18 21:20 Sodium 134 mmol/L (132-142) 10/10/18 21:20 134 mmol/L (130-142) 10/10/18 21:20 Potassium 3.9 mmol/L (3.4-4.6) 10/10/18 21:20 Chloride 102 mmol/L (97-106) 10/10/18 21:20 Carbon Dioxide 22.9 mmol/L (24-32.6) L 10/10/18 21:20 13.0 mmol/L (6.8-13.8) 10/10/18 21:20 BUN 15 mg/dL (3-23) 10/10/18 21:20 1.29 mg/dL (0.4-1.4) 10/10/18 21:20 Est GFR (Non-Af Amer) 44 mL/min (60-130) L 10/10/18 21:20 11.6 (9.0-21.6) 10/10/18 21:20 89 mg/dL (70-110) 10/10/18 21:20 Calcium 9.3 mg/dL (7.9-10.9) 10/10/18 21:20 Assessment/Plan - Narrative Narrative: Niall has had admission lab work done which is unremarkable. She enjoys good health generally and is approved for general anesthetic and ORIF of the left hip as planned. Her pain is well controlled with the morphine that she is getting. - Assessment/Plan (1) Hip fracture, left Problem: Acute Qualifiers: Encounter type: initial encounter Fracture type: closed Qualified Code(s): S72.002A - Fracture of unspecified part of neck of left femur, initial encounter for closed fracture (2) Osteoporosis Problem: Chronic Qualifiers: Osteoporosis type: age-related (3) COPD (chronic obstructive pulmonary disease) Problem: Chronic Qualifiers: COPD type: chronic bronchitis
[2018-10-11] MEDS: RINGER'S SOLUTION,LACTATED 1,000 ML IV PRN ×2 (16:45→18:56)
[2018-10-11] MEDS ORDERED: ceFAZolin SODIUM 1 GM VIAL IV ONE (17:06)
[2018-10-11] MEDS ORDERED: BUPIVACAINE HCL 50 ML VIAL IJ ONE (17:32)
[2018-10-11] MEDS ORDERED: ACETAMINOPHEN 500 MG TABLET PO PRN (17:59)
[2018-10-11] MEDS ORDERED: MAGNESIUM HYDROXIDE 30 ML UDC PO PRN (17:59)
[2018-10-11] MEDS ORDERED: MAG HYDROX/ALUMINUM HYD/SIMETH 30 ML UDC PO PRN (17:59)
[2018-10-11] MEDS ORDERED: MORPHINE SULFATE 4 MG/ML SYRG IV PRN (17:59)
--- NOTE | 2018-10-11 17:59 | OR ---
Operative Report - Dictated Report Narrative: Date: 10/11/2018 Surgeon: Paulo Dubon M.D. Portal Developer: None Preoperative diagnosis: Closed left nondisplaced femoral neck fracture Postoperative diagnosis:Closed left nondisplaced femoral neck fracture Operations and procedures: 1. Percutaneous fixation left nondisplaced femoral neck fracture 2. Intraoperative interpretation of radiographs Anesthesia: General plus local Specimens: None Estimated blood loss: 25ml Retained implants: [employer] 7.3 millimeter 16 millimeter threads cannulated screws 90x2, 95x1 millimeter lengths Complications: None Indications for procedure: Mrs. Jean-Baptiste is a 68-year-old female who injured the left hip after ground-level fall at home. She was admitted to the hospital after being evaluated in the emergency department. Once the medical provider felt that they were stable for surgical treatment, the risks and benefits alternatives were discussed. The risks of , blood clots, bleeding, infection, nerve/tendon/blood vessel injury, malunion, nonunion, failure of implants, painful implants, arthrosis, and need for additional procedures were discussed. The extremity was marked and consent was obtained on the floor. Procedure: After marking the operative extremity on the floor, the patient was taken to the operating room. A timeout was performed. IV antibiotics consisting of Ancef were administered. A general anesthetic was induced by anesthesia, and the patient was then placed onto a fracture table with a well-padded perineal post. The nonoperative leg was placed in a well-padded traction boot in slight extension without any traction with an SCD on the leg. The operative leg was p laced in a well-padded traction boot. No traction or manipulation was performed. Preliminary images were attained utilizing C-arm in both the AP and lateral views. This confirmed that we had obtained adequate visualization of the fracture as well as reduction. Next the hip was then prepped and draped in a standard sterile fashion. Next three guidewires were placed percutaneously in an inverted triangle fashion. The inferior screws placed centered on the lateral view and along the inferior neck cortex on the AP view. The 2 superior screws were placed along the anterior and posterior cortex on the lateral view and along the inferior portion of the superior cortex on the AP in order to obtain as long of screws as possible. This was done with a starting point above the level of the lesser trochanter. C-arm was utilized in order to confirm the placement and to ensure that the tips of the guidewires were not penetrating the joint. The screws were then measured, the outer cortex was drilled, and the 3 screws were placed securing them to the bone on the lateral aspect providing fixation across the fracture. C-arm was again utilized to ensure that the screws were not into the joint and that they stabilized the fracture. The wounds were then thoroughly irrigated. Final images were obtained. 0.5% Marcaine without epinephrine was infused around the skin incision. The hip was placed through range of motion and showed no crepitance. The subcutaneous tissue with 3-0 Vicryl, and the skin was closed with gregorio. Sterile dressings of Xeroform, 4 x 4, and Tegaderm were applied. All sponge, sharp, and instrument counts were correct prior to closing the wounds. The patient was then awoken and transferred to the postanesthesia care unit in stable condition.
--- NOTE | 2018-10-11 18:20 | ANES ---
Post Anesthesia Discharge - Transfer of Care Transfer of Care handoff given to nurse: Yes - Discharge from PACU Discharge from PACU when meets criteria: Yes - Discharge to ASU Discharge to ASU-no complications/pt stable: Yes
[2018-10-11] MEDS: buPROPion HCL 150 MG TABLET.SA PO SCH ×2 (19:10→21:56)
[2018-10-11] MEDS: OXYBUTYNIN CHLORIDE 5 MG TABLET PO SCH ×2 (19:10→21:55)
[2018-10-11] MEDS: MAGNESIUM OXIDE 400 MG TABLET PO SCH (19:10)
[2018-10-11] MEDS: PANTOPRAZOLE SODIUM 40 MG TABLET.EC PO SCH (19:10)
[2018-10-11] MEDS: MONTELUKAST SODIUM 10 MG TABLET PO SCH (19:11)
[2018-10-11] MEDS: WARFARIN SODIUM 5 MG TABLET PO SCH (19:12)
[2018-10-11] MEDS: KETOROLAC TROMETHAMINE 15 MG/ML VIAL IV SCH (19:16)
--- NOTE | 2018-10-11 20:42 | ANES ---
Post Anesthesia Assessment - Vital Signs Vitals: Last Vital Signs Temp 36.9 C 10/11/18 18:20 Pulse 84 10/11/18 18:20 Resp 16 10/11/18 18:20 BP 140/56 10/11/18 18:20 Pulse Ox 92 L 10/11/18 18:20 Airway Patency: Normal - Mental Status Level Of Consciousness: Awake - Pain Level Pain Score: 0 - N/V Assessment Nausea/Vomiting Presence: None Dehydration:: No
[2018-10-11] MEDS ORDERED: GABAPENTIN 400 MG CAPSULE PO SCH (21:00)
[2018-10-11] MEDS: SENNOSIDES/DOCUSATE SODIUM 1 TAB TABLET PO SCH (22:00)
[2018-10-12] MEDS: KETOROLAC TROMETHAMINE 15 MG/ML VIAL IV SCH ×4 (00:53→17:09)
[2018-10-12] MEDS: ceFAZolin SODIUM 1 GM in DEXTROSE 5 % IN WATER 100 ML IV SCH ×6 (01:08→17:09)
[2018-10-12] MEDS: RINGER'S SOLUTION,LACTATED 1,000 ML IV PRN (03:42)
[2018-10-12 05:38] LABS: Hematocrit 35.9 % (37.0-47.0); Hemoglobin 11.2 gm/dL (12.5-16.0); Mean Cell Volume 104.4 fl (78-100); Mean Corpuscular Hemoglobin 32.6 pg (27-31); Mean Corpuscular Hgb Conc 31.2 g/dl (32-36); Mean Platelet Volume 9.8 fl (8-12.5); Platelet Count 120 K/mm3 (150-450); Red Blood Count 3.44 M/mm3 (4.2-5.4); Red Cell Distribution Width 12.7 % (11.5-14.0); White Blood Count 5.8 K/mm3 (4.0-10.5)
[2018-10-12 05:43] LABS: Prothrombin Time (Patient) 10.5 Seconds (9.1-10.7)
[2018-10-12 05:44] LABS: INR 1.06 INR (0.92-1.08)
[2018-10-12 05:45] LABS: Anion Gap 9.5 mmol/L (6.8-13.8); BUN/Creatinine Ratio 11.9 (9.0-21.6); Calcium * 8.1 mg/dL (7.9-10.9); Carbon Dioxide 25.9 mmol/L (24-32.6); Estimated Creat Clear 49.4; Magnesium 1.4 mg/dL (1.2-2.8); Potassium 3.4 mmol/L (3.4-4.6)
[2018-10-12] MEDS: PANTOPRAZOLE SODIUM 40 MG TABLET.EC PO SCH (06:32)
[2018-10-12] MEDS: OXYBUTYNIN CHLORIDE 5 MG TABLET PO SCH ×2 (08:05→20:27)
[2018-10-12] MEDS: buPROPion HCL 150 MG TABLET.SA PO SCH ×2 (08:06→20:29)
[2018-10-12] MEDS: GABAPENTIN 400 MG CAPSULE PO SCH ×2 (08:06→20:28)
[2018-10-12] MEDS: MAGNESIUM OXIDE 400 MG TABLET PO SCH (08:06)
[2018-10-12] MEDS: NYSTATIN 15 APPL BTL TP SCH ×2 (08:06→20:30)
[2018-10-12] MEDS ORDERED: MORPHINE SULFATE 2 MG/ML DISP.SYRIN IV PRN (09:45)
--- NOTE | 2018-10-12 13:14 | PN ---
Subjective - Date and Time Seen Date: 10/12/18 Time: 13:12 Subjective Narrative: Subjective: Reports intolerable pain. Was able to while in the room with therapy. Pain is well-controlled. Voiding without any complications. Tolerating by mouth intake. Denies any nausea or vomiting. Denies calf pain. Slept well. Physical exam: Alert and oriented to person, place and time Left lower Extremity: Palpable dorsalis pedis pulse. Sensation grossly intact to light touch. Dressings quadrant and dry. Able to flex and extend ankle and toes. No excessive drainage. Calf and thigh are soft and nontender. Assessment: Postop day 1 status post left hip percutaneous fixation of femoral neck fracture. Plan: Continue with physical and occupational therapy 50% weightbearing. Continue with anticoagulation - she will need 6 weeks of DVT prophylaxis. 24 hours posto perative prophylactic antibiotics. Pain control with goal to rely on oral medications. Continue bowel regimen. Will need 6 weeks with walker or assitive device to protect joint while ambulating during the recovery process. She is to keep her wound dry. Cover with dry gauze and tape. Utilize NIRMALA hose to her surgical leg. She'll see orthopedics back in approximately 3 weeks. Continue physical therapy. Objective - Vitals Vitals: Last Vital Signs Temp 36.7 C 10/12/18 10:00 Pulse 80 10/12/18 10:00 Resp 16 10/12/18 10:00 BP 120/74 10/12/18 10:00 Pulse Ox 94 10/12/18 10:00 - Abnormal Lab Findings Abnormal Lab Findings: Abnormal Lab Results 10/12/18 10/12/18 Range/Units 05:32 05:32 RBC 3.44 L (4.2-5.4) M/mm3 Hgb 11.2 L (12.5-16.0) gm/dL Hct 35.9 L (37.0-47.0) % MCV 104.4 H (78-100) fl MCH 32.6 H (27-31) pg MCHC 31.2 L (32-36) g/dl Plt Count 120 L (150-450) K/mm3 Est GFR (Non-Af Amer) 53 L D (60-130) mL/min Random Glucose 150 H D (70-110) mg/dL Cauti Physician Documentation - Urinary Catheter Management Urethral (Del Cid) Date of Insertion: 10/11/18 Time of Insertion: 09:16 Date of Removal: 10/12/18 Time of Removal: 05:42 Assessment/Plan - Problems/Diagnosis (1) Hip fracture, left Problem: Acute Qualifiers: Encounter type: subsequent encounter Fracture type: closed Fracture healing: with routine healing Qualified Code(s): S72.002D - Fracture of unspecified part of neck of left femur, subsequent encounter for closed fracture with routine healing
[2018-10-12] MEDS: MONTELUKAST SODIUM 10 MG TABLET PO SCH (17:09)
[2018-10-12] MEDS: ENOXAPARIN SODIUM 40 MG/0.4 ML SYRG SC SCH (17:09)
[2018-10-12] MEDS: WARFARIN SODIUM 5 MG TABLET PO SCH (17:09)
--- NOTE | 2018-10-12 17:47 | PN ---
Subjective - Date and Time Seen Date: 10/12/18 Time: 07:15 Subjective Narrative: Niall's had an uneventful night and she is feeling much better this morning. She had her hip pinning done yesterday and she is already been up to the bathroom with Much difficulty. She is wanting to go home from the hospital rather than going to rehabilitation. I told her we would leave that to orthopedics and physical therapy to decide. She does have a daughter that is there in the evening and night. However the daughter is working during the daytime. Medically she has been very stable and doing very well. Objective - Review of Systems Generalized/Overall Review: Reports: No Symptoms Reported EENTM: Reports: No Symptoms Reported Respiratory: Reports: No Symptoms Reported Cardiac: Reports: No Symptoms Reported Abdominal: Reports: No Symptoms Reported Genitourinary Symptoms: Reports: No Symptoms Reported Musculoskeletal Complaints: Reports: No Symptoms Reported, Joint Pain - Left hip pain and status postop day #1 Neurological: Reports: No Symptoms Reported Skin: Reports: No Symptoms Reported Endocrine: Reports: No Symptoms Reported Misc: All systems neg except as marked - Vitals Vitals: Last Vital Signs Temp 36.6 C 10/12/18 14:22 Pulse 81 10/12/18 14:22 Resp 16 10/12/18 14:22 BP 118/67 10/12/18 14:22 Pulse Ox 95 10/12/18 14:22 - Abnormal Lab Findings Abnormal Lab Findings: Abnormal Lab Results 10/12/18 10/12/18 Range/Units 05:32 05:32 RBC 3.44 L (4.2-5.4) M/mm3 Hgb 11.2 L (12.5-16.0) gm/dL Hct 35.9 L (37.0-47.0) % MCV 104.4 H (78-100) fl MCH 32.6 H (27-31) pg MCHC 31.2 L (32-36) g/dl Plt Count 120 L (150-450) K/mm3 Est GFR (Non-Af Amer) 53 L D (60-130) mL/min Random Glucose 150 H D (70-110) mg/dL - EKG/Xray Findings EKG: NSR EKG read: Interp. by me Interpretation: Reviewed by me - Exam Constitutional: Present: Alert, Oriented x3, Cooperative, Well developed, Well nourished, No distress ENT Exam: Present: normal ENT inspection, hearing grossly normal, pharynx normal, TMs normal Neck: Present: non-tender, full range of motion, supple, normal inspection Breasts: Present: Exam deferred Respiratory: Present: chest non-tender, lungs clear, normal breath sounds Cardiovascular/Chest: Present: normal peripheral pulses, regular rate, rhythm, no chest tenderness, no edema, no gallop, no JVD, no murmur, no rub Abdomen: Present: Normal bowel sounds, soft, nontender, nondistended, no rebound tenderness, no hepatospenomegaly, no masses /Rectal: Present: Exam deferred Extremity: Present: normal range of motion - Except for the left hip 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: 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 Continue increasing activity as tolerated and as instructed by orthopedics and physical therapy. 2. Medically stable to be discharged when orthopedics is ready. - Problems/Diagnosis (1) Hip fracture, left Problem: Acute Qualifiers: Encounter type: subsequent encounter Fracture type: closed Fracture healing: with routine healing Qualified Code(s): S72.002D - Fracture of unspecified part of neck of left femur, subsequent encounter for closed fracture with routine healing (2) Osteoporosis Problem: Chronic Qualifiers: Osteoporosis type: age-related (3) COPD (chronic obstructive pulmonary disease) Problem: Chronic Qualifiers: COPD type: chronic bronchitis
[2018-10-12] MEDS: SENNOSIDES/DOCUSATE SODIUM 1 TAB TABLET PO SCH (20:29)
[2018-10-13] MEDS: KETOROLAC TROMETHAMINE 15 MG/ML VIAL IV SCH ×3 (00:25→11:42)
[2018-10-13 06:24] LABS: Prothrombin Time (Patient) 11.5 Seconds (9.1-10.7)
[2018-10-13 06:28] LABS: INR 1.17 INR (0.92-1.08)
[2018-10-13] MEDS: PANTOPRAZOLE SODIUM 40 MG TABLET.EC PO SCH (06:36)
[2018-10-13] MEDS: NYSTATIN 15 APPL BTL TP SCH ×2 (08:17→21:22)
[2018-10-13] MEDS: OXYBUTYNIN CHLORIDE 5 MG TABLET PO SCH ×2 (08:17→21:21)
[2018-10-13] MEDS: GABAPENTIN 400 MG CAPSULE PO SCH ×2 (08:17→21:20)
[2018-10-13] MEDS: MAGNESIUM OXIDE 400 MG TABLET PO SCH (08:17)
[2018-10-13] MEDS: buPROPion HCL 150 MG TABLET.SA PO SCH ×2 (08:17→21:20)
--- NOTE | 2018-10-13 13:14 | PN ---
Subjective - Date and Time Seen Date: 10/13/18 Time: 13:07 Subjective Narrative: My pain is nicely controlled and only has pain with ambulation Objective Objective Narrative: 68-year-old female status post left ORIF postop day #2 for a left femur fracture was evaluated at bedside and was found to be afebrile and in no acute distress. Patient is recuperating from her's procedure without any issues and is doing well her with her PT. She reports only minimal discomfort with ambulation with partial weightbearing but says she has no pain when she is staying still. Patient's pain is being managed with tramadol which she is tolerating without any problems. Hemoglobin has remained stable during the postop period. Patient's INR is still not at goal so we will continue bridging with Lovenox. Discharge planning to a rehab facility is underway for Monday. - Review of Systems Generalized/Overall Review: Reports: No Symptoms Reported EENTM: Reports: No Symptoms Reported Respiratory: Reports: No Symptoms Reported Cardiac: Reports: No Symptoms Reported Abdominal: Reports: No Symptoms Reported Genitourinary Symptoms: Reports: No Symptoms Reported Musculoskeletal Complaints: Reports: Joint Pain, Joint Swelling Neurological: Reports: No Symptoms Reported Skin: Reports: No Symptoms Reported Endocrine: Reports: No Symptoms Reported - Vitals Vitals: Last Vital Signs Temp 36.7 C 10/13/18 07:57 Pulse 78 10/13/18 07:57 Resp 12 10/13/18 07:57 BP 107/60 10/13/18 07:57 Pulse Ox 93 10/13/18 07:57 - Abnormal Lab Findings Abnormal Lab Findings: Abnormal Lab Results 10/13/18 Range/Units 05:30 PT 11.5 H (9.1-10.7) Seconds INR (Anticoag Therapy) 1.17 H (0.92-1.08) INR - Exam Constitutional: Present: Alert, Oriented x3, Cooperative, Well developed, Well nourished, No distress ENT Exam: Present: normal ENT inspection, hearing grossly normal, pharynx normal, TMs normal Neck: Present: non-tender, full range of motion, supple, normal inspection, trachea midline Breasts: Present: Exam deferred Respiratory: Present: chest non-tender, lungs clear, normal breath sounds, no respiratory distress, no accessory muscle use Cardiovascular/Chest: Present: normal peripheral pulses, regular rate, rhythm, no chest tenderness, no edema, no gallop, no JVD, no murmur, no rub Abdomen: Present: Normal bowel sounds, soft, nontender, nondistended, no rebound tenderness, no hepatospenomegaly, no masses /Rectal: Present: Exam deferred, External genitalia normal Extremity: Present: no pedal edema, leg pain, other - Left hip covered with clean dry bandage there are no signs of bleeding or infection. 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, normal cerebellar test, no motor/sensory deficits, alert, normal mood/affect, oriented x 3 Appearance: Present: appropriate appearance, appropriate insight, neat, no memory impairment Eye contact: Present: cooperative, good eye contact, normal speech Thoughts: Present: normal thought pattern, no apparent hallucination Cauti Physician Documentation - Urinary Catheter Management Urethral (Del Cid) Urethral Indwelling: No Date of Insertion: 10/11/18 Time of Insertion: 09:16 Date of Removal: 10/12/18 Time of Removal: 05:42 Assessment/Plan Plan Narrative: We will continue to manage pain with tramadol and monitor hemoglobin. We will continue with discharge planning to rehab facility that is to take place on Monday. - Problems/Diagnosis (1) Fracture of left hip requiring operative repair Problem: Acute (2) Hip fracture, left Problem: Acute Qualifiers: Encounter type: subsequent encounter Fracture type: closed Fracture healing: with routine healing Qualified Code(s): S72.002D - Fracture of unspecified part of neck of left femur, subsequent encounter for closed fracture with routine healing (3) Osteoarthrosis Problem: Chronic (4) Fall Problem: Acute
[2018-10-13] MEDS: WARFARIN SODIUM 5 MG TABLET PO SCH (16:05)
[2018-10-13] MEDS: ENOXAPARIN SODIUM 40 MG/0.4 ML SYRG SC SCH (16:05)
[2018-10-13] MEDS: MONTELUKAST SODIUM 10 MG TABLET PO SCH (16:06)
[2018-10-13] MEDS: HYDROcodone/ACETAMINOPHEN 1 EACH TABLET PO PRN ×2 (19:39→23:37)
[2018-10-13] MEDS: SENNOSIDES/DOCUSATE SODIUM 1 TAB TABLET PO SCH (21:21)
[2018-10-14 06:20] LABS: Hematocrit 30.9 % (37.0-47.0); Hemoglobin 10.1 gm/dL (12.5-16.0); Mean Cell Volume 100.3 fl (78-100); Mean Corpuscular Hemoglobin 32.8 pg (27-31); Mean Corpuscular Hgb Conc 32.7 g/dl (32-36); Mean Platelet Volume 9.9 fl (8-12.5); Neutrophil # 2.2 K/mm3 (1.3-6.0); Platelet Count 134 K/mm3 (150-450); Red Blood Count 3.08 M/mm3 (4.2-5.4); Red Cell Distribution Width 12.3 % (11.5-14.0); White Blood Count 4.4 K/mm3 (4.0-10.5)
[2018-10-14] MEDS: PANTOPRAZOLE SODIUM 40 MG TABLET.EC PO SCH (06:25)
[2018-10-14] MEDS: HYDROcodone/ACETAMINOPHEN 1 EACH TABLET PO PRN ×2 (06:32→17:37)
[2018-10-14 06:37] LABS: Albumin * 2.3 gm/dl (3.4-5.0); Anion Gap 10.6 mmol/L (6.8-13.8); BUN/Creatinine Ratio 15.8 (9.0-21.6); Bilirubin, Total 0.2 mg/dL (0.0-1.1); Ca. Corrected For Albumin 9.4 mg/dL (8.4-10.2); Calcium * 8.4 mg/dL (7.9-10.9); Carbon Dioxide 25.5 mmol/L (24-32.6); Potassium 4.1 mmol/L (3.4-4.6); Total Protein 5.3 gm/dL (6.2-8.2)
[2018-10-14 06:52] LABS: INR 1.54 INR (0.92-1.08)
[2018-10-14] MEDS: GABAPENTIN 400 MG CAPSULE PO SCH ×2 (08:13→20:39)
[2018-10-14] MEDS: OXYBUTYNIN CHLORIDE 5 MG TABLET PO SCH ×2 (08:13→20:39)
[2018-10-14] MEDS: MAGNESIUM OXIDE 400 MG TABLET PO SCH (08:13)
[2018-10-14] MEDS: buPROPion HCL 150 MG TABLET.SA PO SCH ×2 (08:14→20:38)
[2018-10-14] MEDS: NYSTATIN 15 APPL BTL TP SCH ×2 (08:14→20:40)
[2018-10-14] MEDS: ONDANSETRON HCL/PF 2 MG/ML VIAL IV PRN ×2 (09:55→18:59)
--- NOTE | 2018-10-14 12:15 | PN ---
Subjective - Date and Time Seen Date: 10/14/18 Time: 12:07 Subjective Narrative: I'm tired, haven't been sleeping well because of the ambiance. Objective Objective Narrative: 68-year-old female status post left ORIF postop day #3 for a left femur fracture was evaluated at bedside and was found to be afebrile and in no acute distress. Patient reports feeling tired this morning because she has not been sleeping well because of all the hospital noise and activity, she also reports the physical therapy makes her tired as well. However she denies any shortness of breath or any other symptom. She says that her pain is nicely controlled. Discharge planning is underway to a rehab facility and patient is to be discharged most likely in the morning. In the meantime she was provided with a a coordinate for breathing exercises to prevent atelectasis. - Review of Systems Generalized/Overall Review: Reports: No Symptoms Reported EENTM: Reports: No Symptoms Reported Respiratory: Reports: No Symptoms Reported Cardiac: Reports: No Symptoms Reported Abdominal: Reports: No Symptoms Reported Genitourinary Symptoms: Reports: No Symptoms Reported Musculoskeletal Complaints: Reports: Joint Pain Neurological: Reports: No Symptoms Reported Skin: Reports: No Symptoms Reported Endocrine: Reports: No Symptoms Reported - Vitals Vitals: Last Vital Signs Temp 36.6 C 10/14/18 10:35 Pulse 70 10/14/18 10:35 Resp 18 10/14/18 10:35 BP 142/76 10/14/18 10:35 Pulse Ox 96 10/14/18 10:35 - Abnormal Lab Findings Abnormal Lab Findings: Abnormal Lab Results 10/14/18 10/14/18 10/14/18 Range/Units 05:45 05:45 05:45 RBC 3.08 L (4.2-5.4) M/mm3 Hgb 10.1 L (12.5-16.0) gm/dL Hct 30.9 L (37.0-47.0) % MCV 100.3 H (78-100) fl MCH 32.8 H (27-31) pg Plt Count 134 L (150-450) K/mm3 Eosinophils % 4.6 H (0.0-3.0) % PT 15.0 H (9.1-10.7) Seconds INR (Anticoag Therapy) 1.54 H (0.92-1.08) INR Random Glucose 115 H (70-110) mg/dL ALT 14 L (19-67) U/L Total Protein 5.3 L (6.2-8.2) gm/dL Albumin 2.3 L (3.4-5.0) gm/dl - Exam Constitutional: Present: Alert, Oriented x3, Cooperative, Well developed, Well nourished, No distress ENT Exam: Present: normal ENT inspection, hearing grossly normal, pharynx normal, TMs normal Neck: Present: non-tender, full range of motion, supple, normal inspection, trachea midline Breasts: Present: Exam deferred Respiratory: Present: chest non-tender, wheezing - Mild inspiratory wheezing on left lung base Cardiovascular/Chest: Present: normal peripheral pulses, regular rate, rhythm, no chest tenderness, no edema, no gallop, no JVD, no murmur Abdomen: Present: Normal bowel sounds, soft, nontender, nondistended, no rebound tenderness, no hepatospenomegaly, no masses /Rectal: Present: Exam deferred Extremity: Present: no calf tenderness, normal capillary refill, leg pain, other - Left hip covered by dry clean bandage no signs of bleeding or infection 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: 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 as tested, normal cerebellar test, no motor/sensory deficits, alert, normal mood/affect, oriented x 3 Appearance: Present: appropriate appearance, appropriate insight, neat, no memory impairment Eye contact: Present: cooperative, good eye contact, normal speech Thoughts: Present: normal thought pattern, no apparent hallucination Cauti Physician Documentation - Urinary Catheter Management Urethral (Del Cid) Urethral Indwelling: No Date of Insertion: 10/11/18 Time of Insertion: 09:16 Date of Removal: 10/12/18 Time of Removal: 05:42 Assessment/Plan Plan Narrative: Patient will continue with in-hospital PT per Ortho's orders. She is currently on anticoagulation with bridging between warfarin and Lovenox. Her INR was found to be below the target range so an additional dose of 2.5 of warfarin was added to be administered this afternoon. Hemoglobin has decreased slightly as expected during postop but remains more or less stable. We will continue to follow daily INR. Discharge planning is underway to a rehab facility that is to take place tomorrow morning. Patient's PCP Dr. Sethi will return tomorrow morning and take over patient's care. - Problems/Diagnosis (1) Fracture of left hip requiring operative repair Problem: Acute (2) Hip fracture, left Problem: Acute Qualifiers: Encounter type: subsequent encounter Fracture type: closed Fracture healing: with routine healing Qualified Code(s): S72.002D - Fracture of unspecified part of neck of left femur, subsequent encounter for closed fracture with routine healing (3) Osteoarthrosis Problem: Chronic (4) Fall Problem: Acute
[2018-10-14] MEDS: WARFARIN SODIUM 5 MG TABLET PO SCH (16:44)
[2018-10-14] MEDS: ENOXAPARIN SODIUM 40 MG/0.4 ML SYRG SC SCH (16:46)
[2018-10-14] MEDS: MONTELUKAST SODIUM 10 MG TABLET PO SCH (16:46)
[2018-10-14] MEDS ORDERED: WARFARIN SODIUM 2.5 MG TABLET PO ONE (17:00)
[2018-10-14] MEDS: ACYCLOVIR 200 MG CAPSULE PO SCH (17:37)
[2018-10-14] MEDS: SENNOSIDES/DOCUSATE SODIUM 1 TAB TABLET PO SCH (20:37)
[2018-10-14] MEDS ORDERED: guaiFENesin 100 MG/5 ML BTL PO PRN (22:09)
[2018-10-14] MEDS ORDERED: guaiFENesin 100 MG/5 ML BTL ONE (22:11)
[2018-10-15 06:24] LABS: Prothrombin Time (Patient) 23.6 Seconds (9.1-10.7)
[2018-10-15] MEDS: PANTOPRAZOLE SODIUM 40 MG TABLET.EC PO SCH (06:29)
[2018-10-15 06:31] LABS: INR 2.47 INR (0.92-1.08)
[2018-10-15] MEDS ORDERED: GABAPENTIN 400 MG CAPSULE PO SCH (07:00)
[2018-10-15] MEDS: HYDROcodone/ACETAMINOPHEN 1 EACH TABLET PO PRN (08:15)
[2018-10-15] MEDS: ACYCLOVIR 200 MG CAPSULE PO SCH ×2 (08:16→13:08)
[2018-10-15] MEDS: OXYBUTYNIN CHLORIDE 5 MG TABLET PO SCH (08:16)
[2018-10-15] MEDS: MAGNESIUM OXIDE 400 MG TABLET PO SCH (08:16)
[2018-10-15] MEDS: buPROPion HCL 150 MG TABLET.SA PO SCH (08:16)
[2018-10-15] MEDS: NYSTATIN 15 APPL BTL TP SCH (08:18)
--- NOTE | 2018-10-15 12:20 | DS ---
(1) Hip fracture, left Problem: Acute Qualifiers: Encounter type: subsequent encounter Fracture type: closed Fracture healing: with routine healing Qualified Code(s): S72.002D - Fracture of unspecified part of neck of left femur, subsequent encounter for closed fracture with routine healing (2) Osteoporosis Problem: Chronic Qualifiers: Osteoporosis type: age-related (3) COPD (chronic obstructive pulmonary disease) Problem: Chronic Qualifiers: COPD type: chronic bronchitis Description of Stay: Niall Jean-Baptiste is a 68-year-old female who fell at home and sustained a fracture of her left hip. She had put plastic down over her carpet to keep her dog from urinating as the dog is incontinent. Her tennis shoes grabbed ahold of the plastic and tripped her and caused her to fall. She was evaluated in the emergency room where x-rays revealed a hip fracture. She was subsequently admitted to my service in my absence. Postoperatively, she has done well. She has found that her independence and stability isn't as good as she thought it would be and believes now that it would be a good idea to go to a rehabilitation facility to get stronger and better balanced. Although she has COPD she has had no complications of that during this admission. She does have some expected drop in hemoglobin postoperatively but is not transfuseable. Procedures Performed: see notes below List Procedures: ORIF left hip Results and Findings: Lab Pending Results 10/10/18 21:20: WBC 5.1, RBC 3.65 L, Hgb 12.0 L, Hct 36.8 L, MCV 100.8 H, MCH 32.9 H, MCHC 32.6, RDW 12.5, Plt Count 148 L, MPV 9.3, Immature Gran % (Auto) 0.20, Immature Gran # (Auto) 0.01, Neutrophils % 47.6, Lymphocytes % 40.9, Monocytes % 8.1, Eosinophils % 2.8, Basophils % 0.4, Nucleated RBC % 0.0, Neutrophils # 2.4, Lymphocytes # 2.07, Monocytes # 0.4, Eosinophils # 0.1, Absolute Basophils 0.0 10/10/18 21:20: Sodium 134, Plasma Sodium 134, Potassium 3.9, Chloride 102, Carbon Dioxide 22.9 L, Anion Gap 13.0, BUN 15, Creatinine 1.29, Est GFR (Non-Af Amer) 44 L, BUN/Creatinine Ratio 11.6, Random Glucose 89, Calcium 9.3 10/12/18 05:32: Sodium 137, Plasma Sodium 138, Potassium 3.4, Chloride 105, Carbon Dioxide 25.9, Anion Gap 9.5, BUN 13, Creatinine 1.09, Est GFR (Non-Af Amer) 53 L D, BUN/Creatinine Ratio 11.9, Random Glucose 150 H D, Calcium 8.1, Magnesium 1.4 10/12/18 05:32: WBC 5.8, RBC 3.44 L, Hgb 11.2 L, Hct 35.9 L, MCV 104.4 H, MCH 32.6 H, MCHC 31.2 L, RDW 12.7, Plt Count 120 L, MPV 9.8 10/12/18 05:32: PT 10.5, INR (Anticoag Therapy) 1.06 10/13/18 05:30: PT 11.5 H, INR (Anticoag Therapy) 1.17 H 10/14/18 05:45: WBC 4.4 D, RBC 3.08 L, Hgb 10.1 L, Hct 30.9 L, MCV 100.3 H, MCH 32.8 H, MCHC 32.7, RDW 12.3, Plt Count 134 L, MPV 9.9, Immature Gran % (Auto) 0.20, Immature Gran # (Auto) 0.01, Neutrophils % 51.0, Lymphocytes % 35.3, Monocytes % 8.7, Eosinophils % 4.6 H, Basophils % 0.2, Nucleated RBC % 0.0, Neutrophils # 2.2, Lymphocytes # 1.55, Monocytes # 0.4, Eosinophils # 0.2, Absolute Basophils 0.0 10/14/18 05:45: Sodium 136, Plasma Sodium 136, Potassium 4.1 D, Chloride 104, Carbon Dioxide 25.5, Anion Gap 10.6, BUN 15, Creatinine 0.95, Est GFR (Non-Af Amer) 63, BUN/Creatinine Ratio 15.8, Random Glucose 115 H, Calcium 8.4, Calcium Adj for Albumin 9.4, Total Bilirubin 0.2, AST 22, ALT 14 L, Alkaline Phosphatase 54, Total Protein 5.3 L, Albumin 2.3 L 10/14/18 05:45: PT 15.0 H, INR (Anticoag Therapy) 1.54 H 10/15/18 06:10: PT 23.6 H, INR (Anticoag Therapy) 2.47 H Discharge Location: [facility] Disposition: SNF Condition: Fair Level of Care: SNF Discharge Activity: Activity as tolerated, Weight bearing Discharge Diet: General/regular food [facility] Therapy: Physicial Therapy, Occupation Therapy Referrals: Gonzalo Sethi DO [Primary Care Provider] - Additional Patient Instructions (free text): Plan: Continue with physical and occupational therapy 50% weightbearing. Continue with anticoagulation - she will need 6 weeks of DVT prophylaxis (Coumadin). Will need 6 weeks with walker or assistive device to protect joint while ambulating during the recovery process. She is to keep her wound dry. Cover with dry gauze and tape. Utilize NIRMALA hose to her surgical leg. She'll see orthopedics back in approximately 3 weeks. Complete Home Medications List: Complete Home Medication List: Calcium Carbonate/Vitamin D3 [Calcium 600-Vit D3 400 Tablet] 1 ea PO TID 06/16/16 Multivitamins [Multivitamin Karena] 1 cap PO DAILY 12/26/16 montelukast 10 mg tablet 10 mg PO QPM #30 tab 12/05/17 oxybutynin chloride ER 10 mg tablet,extended release 24 hr 10 mg PO DAILY 01/01/18 Magnesium Oxide [Magnesium] 500 mg PO DAILY 04/03/18 bupropion HCl SR 150 mg tablet,12 hr sustained-release 150 mg PO BID #60 tab 07/03/18 omeprazole 40 mg capsule,delayed release 40 mg PO DAILY #30 cap 08/24/18 nystatin 100,000 unit/gram topical powder 1 applic TP BID #60 g 09/19/18 Diphenhydramine HCl [Wal-Dryl] 25 mg PO TID 10/10/18 Gabapentin 400 mg PO DAILY 10/10/18 Gabapentin 400 mg PO HS 10/10/18 Ipratropium/Albuterol Sulfate [Iprat-Albut 0.5-3(2.5) mg/3 ml] 3 ml INHALATION QID PRN 10/10/18 Acetaminophen [Tylenol] 1,000 mg PO Q6H PRN #60 tab 10/15/18 Acyclovir [Zovirax] 400 mg PO TID #15 cap 05/13/19 Enoxaparin Sodium [Lovenox] 40 mg SC Q24H 14 Days disp.syrin 10/15/18 Gabapentin [Neurontin] 400 mg PO BID@0700,1900 #60 cap 10/15/18 HYDROcodone/ACETAMINOPHEN [[place] 5-325] 1 ea PO Q4H PRN 14 Days #60 tab 10/15/18 Mag Hydrox/Aluminum Hyd/Simeth [Maalox Plus Suspension] 30 ml PO Q6H PRN #600 udc 10/15/18 Magnesium Hydroxide [Milk Of Magnesia] 30 ml PO DAILY PRN 30 Days #600 udc 10/15/18 Sennosides/Docusate Sodium [Senokot-S] 2 tab PO HS #60 tab 10/15/18 Warfarin Sodium [Coumadin] 5 mg PO DAILY@1700 #14 tab 10/15/18 guaiFENesin [Robitussin] 200 mg PO Q4H PRN #180 btl 10/15/18
[2018-10-15 13:51] VITALS: BP 137/68
== END 2018-10-15 14:30 | DRG 482 ==
LOC: ER 21:03 → MS 22:54
PROVIDERS: ADMIT Internal Medicine; ATTEND Family Medicine
CPT/HCPCS: 36415; 71010; 71045; 73502; 76000; 80048; 80053; 83735; 85025; 85027; 85610; 93005; 96361; 96374; 96375; 97110; 97116; 97161; 97165; 97530; 97535; 99285; J2405